=== PATIENT | female | born 1990 | race American Indian/Alaskan Native ===

== ENCOUNTER 2016-11-17 19:56 | Emergency (ER) | payer SELFPAY ==
--- NOTE | 2016-11-17 21:13 | XRay Report ---
FINAL REPORT PROCEDURE: XR HAND 2V RT TECHNIQUE: Two views of the right hand are obtained HISTORY: RIGHT HAND PAIN COMPARISON: No prior studies are available for comparison. FINDINGS: There is a minimally displaced, oblique fracture through the proximal shaft of the 3rd metacarpal. No involvement of the joint space is seen. No dislocation is seen. IMPRESSION: Minimally displaced, oblique fracture through the proximal shaft of the 3rd metacarpal is seen.
[2016-11-17] MEDS ORDERED: VALIUM IM ONE (23:46)
[2016-11-17] MEDS ORDERED: MOTRIN PO ONE (23:46)
--- NOTE | 2016-11-17 23:51 | Emergency Department Report ---
HPI - General Chief Complaint: Extremity Injury, Upper Time Seen by Provider: 11/17/16 23:43 - HPI HPI: Patient is a 26-year-old female presents to ED complaining of right hand pain 3 days. Patient states that about 3 days ago she punched a wall and since then she doesn't pain and swelling. Systems gone down a bit but she still hurts her hand and is unable to lift things or object. Patient also complains of upper lip redness and swelling for the past 4 days. Patient states she has upper lip ring that has gone into her lip and is causing infection. Patient states she will light. Lip ring to be removed. She denies discussed chills/nausea/vomiting/abdominal pain. ED Past Medical Hx - Past Medical History Previous Medical History?: No Hx Hypertension: No Hx Diabetes: No Hx Deep Vein Thrombosis: No Hx Renal Disease: No Hx Sickle Cell Disease: No Hx Seizures: No Hx Asthma: No - Surgical History Past Surgical History?: No - Social History Smoking Status: Current Every Day Smoker Substance Use Type: None - Medications Home Medications: Home Medications Medication Instructions Recorded Confirmed Last Taken Type Pnv with Ca,No.72/Iron/FA [Pnv 1 tab PO DAILY 01/03/16 01/03/16 01/02/16 09:00 History Plus Multivit Tab] Cephalexin [Keflex] 500 mg PO Q12HR #14 cap 11/18/16 Unknown Rx Cyclobenzaprine [Flexeril] 10 mg PO QHS PRN #20 tablet 11/18/16 Unknown Rx Ibuprofen [Motrin] 800 mg PO Q8HR PRN #40 tablet 11/18/16 Unknown Rx ED Review of Systems ROS: Stated complaint: RT HAND INJURY/SWOLLEN LIP Other details as noted in HPI Constitutional: denies: chills, fever Eyes: denies: eye pain, eye discharge, vision change ENT: denies: ear pain, throat pain Respiratory: denies: cough, shortness of breath, wheezing Cardiovascular: denies: chest pain, palpitations Endocrine: no symptoms reported Gastrointestinal: denies: abdominal pain, nausea, vomiting, diarrhea Genitourinary: denies: urgency, dysuria, frequency, discharge Musculoskeletal: denies: back pain, joint swelling, arthralgia Skin: denies: rash, lesions Neurological: denies: headache, weakness, numbness, paresthesias, confusion Psychiatric: denies: anxiety, depression Hematological/Lymphatic: denies: easy bleeding, easy bruising Physical Exam - Physical Exam Vital Signs: Vital Signs 11/17/16 20:11 Temperature 98.7 F Pulse Rate 99 H Respiratory 20 Rate Blood Pressure 102/62 O2 Sat by Pulse 99 Oximetry Physical Exam: GENERAL: Alert and oriented x3, no apparent distress, Normal Gait, atraumatic. HEAD: Head is normocephalic and a-traumatic. MOUTH:Mouth is well hydrated and without lesions. Tonsils nonerythematous or swollen, Uvula midline, Tongue not elevated. Mucous membranes are moist. Posterior pharynx clear, no exudate or lesions. Patent airways. NECK: Supple. Non edematous, No lymphadenopathy or thyromegaly. No C-spine tenderness LUNGS: Symetrical with respiration, No wheezing, no rales or crackles, CTAB. HEART: S1, S2 present, regular rate and rhythm without murmur, no rubs, no gallops. Non tender to palpation ABDOMEN: No organomegaly was noted,Positive bowel sounds, soft, and non- distended. The Nontender to palpation on all Quadrants, NO CVA tenderness. BACK: Full range of motion, no spinal tenderness, nontender to palpation. EXTREMITIES/MUSCULOSKELETAL: No cyanosis, clubbing, rash, lesions or edema. Full ROM bilaterally. UE/LE Pulses 2+ bilaterally. NEUROLOGIC: The patient is cooperative with no focal neurologic deficits. Cranial nerves II through XII are grossly intact. Normal speech. Normal sensation in bilateral upper and lower extremities, No loss of sensation. Mood is congruent with affect, denies suicidal or homicidal ideations. SKIN: Warm and dry, No lesions, No ulceration or induration present. ED Course Vital Signs 11/17/16 20:11 Temperature 98.7 F Pulse Rate 99 H Respiratory 20 Rate Blood Pressure 102/62 O2 Sat by Pulse 99 Oximetry ED Medical Decision Making - Radiology Data Radiology results: report reviewed, image reviewed FINAL REPORT PROCEDURE: XR HAND 2V RT TECHNIQUE: Two views of the right hand are obtained HISTORY: RIGHT HAND PAIN COMPARISON: No prior studies are available for comparison. FINDINGS: There is a minimally displaced, oblique fracture through the proximal shaft of the 3rd metacarpal. No involvement of the joint space is seen. No dislocation is seen. IMPRESSION: Minimally displaced, oblique fracture through the proximal shaft of the 3rd metacarpal is seen. Transcribed By: [employer] Dictated By: TYRELL HUNT JR, MD Electronically Authenticated By: TYRELL HUNT JR, MD Signed Date/Time: 11/17/162106 FINAL REPORT PROCEDURE: CT FACIAL BONES WO CON TECHNIQUE: Computerized tomography of the facial bones and soft tissues with axial and coronal sections performed from the cranial aspect of the frontal sinuses to the caudal portion of the mandible without contrast material. HISTORY: Swollen infected upper lip with lip ring inside. COMPARISON: No prior studies are available for comparison. FINDINGS: Bones: No significant abnormality. Paranasal sinuses: Nasopharyngeal secretions. Ostiomeatal units are patent. Mild left and minimal right maxillary sinusitis. Minimal right ethmoid sinusitis. Soft tissues: Upper lip piercing causes artifact and limits evaluation. Soft tissue prominence and induration in this region. Soft tissue prominence of the upper lip just inferior to the lip piercing measuring 10 x 12 millimeters. Other: None. IMPRESSION: Upper lip piercing causes artifact and limits evaluation. Soft tissue prominence and induration in this region, consider cellulitis. Although could be artifact, soft tissue prominence just inferior to the piercing, cannot exclude subtle early organizing phlegmon/abscess. Consider further evaluation and followup if this is of continued clinical concern. Nasopharyngeal secretions. Mild sinusitis. - Medical Decision Making 26-year-old female presents to ED with possible fracture and foreign body properly ED course: Patient received valium, Motrin 88. Patient positioned appropriately, 8cc lidocaine with/without epinephrine was used as a local anesthetic. #11 blade scalpal used for single incision. A. Copius drainage of pus from lip. this reduced the sweeling and the lip ring was visualized and grasp with a clamp and after several minutes of twirling and manipulation of lip ring, I was able to get th e ring out,. . Procedure tolerated without complications. Wound dressed with sterile strips. Pt tolerated procedure well. Vital OCL splint applied to right hand. Post splint evaluation: Patient improved over the fingers, capillary refill 2+. No neurological deficit. Critical care attestation.: If time is entered above; I have spent that time in minutes in the direct care of this critically ill patient, excluding procedure time. ED Disposition Clinical Impression: Fracture of metacarpal base of right hand, closed, Foreign body in soft tissue Disposition: DC-01 TO HOME OR SELFCARE Is pt being admited?: No Does the pt Need Aspirin: No Condition: Stable Instructions: Hand Fracture (ED), Acute Wound Care (ED), Finger Dislocation (ED ) Prescriptions: Cyclobenzaprine [Flexeril] 10 mg PO QHS PRN #20 tablet PRN Reason: Muscle Spasm Cephalexin [Keflex] 500 mg PO Q12HR #14 cap Ibuprofen [Motrin] 800 mg PO Q8HR PRN #40 tablet PRN Reason: Pain Referrals: PRIMARY CAREMD [Primary Care Provider] - 3-5 Days JAJA WOODWARD MD [Staff Physician] - 3-5 Days [facility] [place][Note 3] [Outside] - 3-5 Days [facility] [Outside] - 3-5 Days Forms: Accompanied Note, Work/School Release Form(ED) Time of Disposition: 02:47
[2016-11-18 00:55] VITALS: BP 103/64
--- NOTE | 2016-11-18 01:11 | Cat Scan Report ---
FINAL REPORT PROCEDURE: CT FACIAL BONES WO CON TECHNIQUE: Computerized tomography of the facial bones and soft tissues with axial and coronal sections performed from the cranial aspect of the frontal sinuses to the caudal portion of the mandible without contrast material. HISTORY: Swollen infected upper lip with lip ring inside. COMPARISON: No prior studies are available for comparison. FINDINGS: Bones: No significant abnormality. Paranasal sinuses: Nasopharyngeal secretions. Ostiomeatal units are patent. Mild left and minimal right maxillary sinusitis. Minimal right ethmoid sinusitis. Soft tissues: Upper lip piercing causes artifact and limits evaluation. Soft tissue prominence and induration in this region. Soft tissue prominence of the upper lip just inferior to the lip piercing measuring 10 x 12 millimeters. Other: None. IMPRESSION: Upper lip piercing causes artifact and limits evaluation. Soft tissue prominence and induration in this region, consider cellulitis. Although could be artifact, soft tissue prominence just inferior to the piercing, cannot exclude subtle early organizing phlegmon/abscess. Consider further evaluation and followup if this is of continued clinical concern. Nasopharyngeal secretions. Mild sinusitis.
== END 2016-11-18 03:23 | disposition home or self-care (01) ==
LOC: ED 19:56
DX: S62.309A Unspecified fracture of unspecified metacarpal bone, initial encounter for closed fracture (principal); S60.551A Superficial foreign body of right hand, initial encounter; X58.XXXA Exposure to other specified factors, initial encounter; Y93.9 Activity, unspecified; Y92.9 Unspecified place or not applicable; Y99.9 Unspecified external cause status
CPT/HCPCS: 10060; 29125; 70486; 73120; 96372; 99284; J3360

== ENCOUNTER 2017-04-16 01:27 | Outpatient (CLI) | payer SELFPAY ==
[2017-04-16 01:36] VITALS: BP 91/50
[2017-04-16 02:31] LABS: Bacteria,Urine 4+ /HPF (Negative); Bilirubin,Urine NEG (Negative); Blood,Urine NEG (Negative); Color,Urine Straw (Yellow); Nitrite,Urine NEG (Negative); Protein,Urine <15 mg/dL mg/dL (Negative); Urobilinogen,Urine < 2.0 mg/dL (<2.0)
[2017-04-16 02:41] LABS: Amphetamine Screen,Urine PRESUMPTIVE NEGATIVE; Benzodiazepines Screen,Urine PRESUMPTIVE NEGATIVE; Cocaine Screen,Urine PRESUMPTIVE NEGATIVE; Methadone Screen,Urine PRESUMPTIVE NEGATIVE; Opiate Screen,Urine PRESUMPTIVE NEGATIVE
[2017-04-16 02:57] LABS: Cannabinoid Screen,Urine PRESUMPTIVE POSITIVE
[2017-04-16] MEDS ORDERED: TYLENOL ONE (02:57)
[2017-04-16] MEDS ORDERED: TYLENOL PO ONE (02:58)
== END 2017-04-16 03:18 | disposition home or self-care (01) ==
LOC: TRG 01:27
PROVIDERS: ATTEND Obstetrics & Gynecology
DX: O47.02 False labor before 37 completed weeks of gestation, second trimester (principal); Z3A.26 26 weeks gestation of pregnancy; Z79.899 Other long term (current) drug therapy
CPT/HCPCS: 80307; 81001

== ENCOUNTER 2017-05-03 10:03 | Inpatient (IN) | payer OTHER ==
[2017-05-03] MEDS ORDERED: MAGNESIUM SULFATE 40GM/1000ML 40 GM/1,000 ML BAG IV SCH (11:00)
[2017-05-03] MEDS ORDERED: MAGNESIUM SULFATE IV ONE (11:02)
[2017-05-03] MEDS ORDERED: LACTATED RINGERS 1,000 ML ONE (11:47)
[2017-05-03] MEDS ORDERED: MAGNESIUM SULFATE 4GM/100ML 4 GM/100 ML BAG IV ONE (12:00)
[2017-05-03] MEDS ORDERED: COLACE PO PRN (12:04)
[2017-05-03] MEDS ORDERED: SUDAFED PO PRN (12:04)
[2017-05-03] MEDS ORDERED: SENOKOT S PO PRN (12:04)
[2017-05-03 12:16] LABS: Amphetamine Screen,Urine PRESUMPTIVE NEGATIVE; Benzodiazepines Screen,Urine PRESUMPTIVE NEGATIVE; Cocaine Screen,Urine PRESUMPTIVE NEGATIVE; Methadone Screen,Urine PRESUMPTIVE NEGATIVE; Opiate Screen,Urine PRESUMPTIVE NEGATIVE
[2017-05-03 12:40] LABS: Cannabinoid Screen,Urine PRESUMPTIVE POSITIVE
[2017-05-03] MEDS: CELESTONE SOLUSPAN IM SCH (13:28)
[2017-05-03 13:40] LABS: Basophils # (Auto) 0.1 K/mm3 (0.0-0.1); Basophils % (Auto) 0.6 % (0.0-1.8); Eosinophils # (Auto) 0.1 K/mm3 (0.0-0.4); Eosinophils % (Auto) 0.5 % (0.0-4.3); Hematocrit 43.4 % (30.3-42.9); Hemoglobin 14.4 gm/dl (10.1-14.3); Lymphocytes # (Auto) 2.5 K/mm3 (1.2-5.4); Lymphocytes % (Auto) 21.7 % (13.4-35.0); Mean Corpuscular HGB Conc 33 % (30-34); Mean Corpuscular Hemoglobin 29 pg (28-32); Mean Corpuscular Volume 88 fl (79-97); Monocytes # (Auto) 0.6 K/mm3 (0.0-0.8); Monocytes % (Auto) 5.1 % (0.0-7.3); Platelet Count 207 K/mm3 (140-440); Red Blood Count 4.92 M/mm3 (3.65-5.03); Red Cell Distribution Width 13.9 % (13.2-15.2)
[2017-05-03] MEDS: MAGNESIUM SULFATE 40 GM in NACL 0.9% 1000 ML 1,000 ML IV SCH (13:41)
[2017-05-03] MEDS: POLYCILLIN/NS 2 GM/100 ML 2 GM/100 ML BAG IV SCH ×2 (14:09→18:33)
--- NOTE | 2017-05-03 15:32 | Ultrasound Report ---
ULTRASOUND OB LIMITED History: Premature rupture of membranes Technique: Transabdominal ultrasound with Doppler interrogation. Gestation: Single Position: Cephalic Amniotic Fluid: Decreased JASON = 1.7 cm Placenta: Left lateral Placental Grade: 1 No evidence for abruption. Heart Rate: 147 BPM
--- NOTE | 2017-05-03 17:29 | History and Physical Report ---
History of Present Illness Date of examination: 05/03/17 Date of admission: 05/03/17 15:15 Chief complaint: My water broke History of present illness: Patient is a 27 year old who presents to L&D with complaint of LOF at 28 weeks with EDC 07/23/2017. She has had no care and states that she has been seen at [facility] in triage multiple times but has never been seen in an office. Her last was reported to be normal and she delivered at term. She states that her insurance has been inactive. Past History Past Medical History: no pertinent history Past Surgical History: no surgical history Family/Genetic History: none Social history: single - Obstetrical History Expected Date of Delivery: 07/23/17 Actual Gestation: 28 Week(s) 3 Day(s) : 2 Para: 1 Number of Living Children: 1 Medications and Allergies Allergies Allergy/AdvReac Type Severity Reaction Status Date / Time No Known Allergies Allergy Verified 01/03/16 12:48 Home Medications Medication Instructions Recorded Confirmed Last Taken Type No Known Home Medications [No 05/03/17 05/03/17 Unknown History Reported Home Medications] Active Meds: Active Medications Acetaminophen (Tylenol) 650 mg PO Q4H PRN PRN Reason: Pain MILD(1-3)/Fever >100.5/TURK Betamethasone Acet/Betameth SodPhos (Celestone Soluspan) 12 mg IM Q24HR SAMUEL Last Admin: 05/03/17 13:28 Dose: 12 mg Docusate Sodium (Colace) 100 mg PO Q12H PRN PRN Reason: Constipation Magnesium Sulfate 40 gm/ (Sodium Chloride) 1,080 mls @ 54 mls/hr IV DIRECT SAMUEL PRN Reason: 2 GM/HR Last Admin: 05/03/17 13:41 Dose: 2 gm/hr, 54 mls/hr Ampicillin Sodium (Polycillin/Ns 2 Gm/100 Ml) 2 gm in 100 mls @ 100 mls/hr IV Q6HR SAMUEL PRN Reason: Protocol Stop: 05/05/17 06:59 Last Admin: 05/03/17 14:09 Dose: 100 mls/hr Lactated Ringer's (Lactated Ringers) 1,000 mls @ 125 mls/hr IV DIRECT SAMUEL Multivitamins/Iron/Calcium ( Vitamin) 1 each PO QDAY SAMUEL Ondansetron HCl (Zofran) 4 mg IV Q6H PRN PRN Reason: Nausea And Vomiting Pseudoephedrine HCl (Sudafed) 30 mg PO Q4H PRN PRN Reason: Nasal Congestion Senna/Docusate Sodium (Senokot S) 2 tab PO Q12H PRN PRN Reason: Laxative Effect Zolpidem Tartrate (Ambien) 10 mg PO ONCE PRN PRN Reason: Sleep Review of Systems All systems: negative Ears, nose, mouth and throat: headache Breasts: deferred Genitourinary: leakage of fluid, contractions - Vital Signs Vital signs: Vital Signs Pulse Ox 100 04/16/17 02:50 Temp Pulse Resp BP Pulse Ox 97.1 F L 76 18 87/50 98 05/03/17 11:27 05/03/17 17:19 05/03/17 11:27 05/03/17 16:55 05/03/17 17:19 - Physical Exam Breasts: Cardiovascular: Regular rate, Normal S1, Normal S2 Lungs: Positive: Clear to auscultation, Normal air movement Abdomen: Positive: normal appearance, soft, normal bowel sounds. Negative: distention, tenderness Genitourinary (Female): Positive: normal external genitalia, normal perenium Vulva: both: normal Vagina: Positive: normal moisture. Negative: discharge Cervix: Negative: lesion, discharge Uterus: Positive: normal size, normal contour Adnexa: both: normal Anus/Rectum: Positive: normal perianal skin, heme negative. Negative: rectal mass, hemorrhoids Extremities: Deep Tendon Reflex Grade: Normal +2 - Obstetrical Cervical Dilatation: 3 Cervical Effacement Percentage: 50 station: -3 Uterine Contraction Pattern: Irregular Uterine Tone Measurement Phase: Resting Uterine Contraction Intensity: Moderate Results Result Diagrams: 05/03/17 13:10 Abnormal lab results 05/03/17 Range/Units 13:10 WBC 11.3 H (4.5-11.0) K/mm3 Hgb 14.4 H (10.1-14.3) gm/dl Hct 43.4 H (30.3-42.9) % Seg Neutrophils % 72.1 H (40.0-70.0) % Seg Neutrophils # 8.2 H (1.8-7.7) K/mm3 All other labs normal. Assessment and Plan IUP at 28.2 weeks with pprom and no care. Admit to APU. Begin magnesium for neuroprophylaxis. Administer steroids and antibiotics. NPO for now. Will consult NICU. Draw panel for no care. Order ultrasound to check position and JASON. Expectant management.
[2017-05-03 18:23] LABS: Hepatitis C Virus Antibody Non-Reactive (NonReactive); Rubella IgG Antibody Immune (Immune)
[2017-05-03] MEDS: TYLENOL PO PRN (18:26)
[2017-05-03] MEDS: ZOFRAN IV PRN (18:28)
[2017-05-03] MEDS: AMBIEN PO PRN (22:19)
[2017-05-04] MEDS: POLYCILLIN/NS 2 GM/100 ML 2 GM/100 ML BAG IV SCH ×4 (00:09→17:42)
[2017-05-04] MEDS ORDERED: BICITRA PO ONE (01:54)
[2017-05-04] MEDS: LACTATED RINGERS 1,000 ML IV SCH ×2 (02:51→17:19)
[2017-05-04] MEDS ORDERED: ALUM-MAG HYDROX-SIMETH 200-200-20MG/5ML PO PRN (03:40)
[2017-05-04] MEDS: TYLENOL PO PRN (09:14)
[2017-05-04] MEDS: MAGNESIUM SULFATE 40 GM in NACL 0.9% 1000 ML 1,000 ML IV SCH (10:34)
[2017-05-04] MEDS: PRENATAL VITAMIN PO SCH (10:47)
--- NOTE | 2017-05-04 12:38 | Progress Note ---
Assessment and Plan IUP at 28.4 weeks with pprom. Patient currently stable. Will receive 2nd dose of steroids at 1:30 pm. After which, we will discontinue magesium. Will continue expectant management. Subjective - Subjective Date of service: 05/04/17 Principal diagnosis: PPROM Interval history: Patient is a 27 year old who presents to L&D with complaint of LOF at 28 weeks with EDC 07/23/2017. She has had no care and states that she has been seen at [facility] in triage multiple times but has never been seen in an office. Her last was reported to be normal and she delivered at term. She states that her insurance has been inactive. Patient reports: other (no new complaints on today) Objective - Vital Signs Vital Signs: Vital Signs - 12hr 05/04/17 05/04/17 05/04/17 00:35 02:54 02:56 Temperature Pulse Rate 80 84 82 Respiratory Rate Blood Pressure 88/49 88/52 Blood Pressure [Left] O2 Sat by Pulse 97 Oximetry 05/04/17 05/04/17 05/04/17 03:01 03:06 03:11 Temperature Pulse Rate 89 85 66 Respiratory Rate Blood Pressure Blood Pressure [Left] O2 Sat by Pulse 99 99 100 Oximetry 05/04/17 05/04/17 05/04/17 03:16 03:21 03:26 Temperature Pulse Rate 75 75 78 Respiratory Rate Blood Pressure Blood Pressure [Left] O2 Sat by Pulse 98 98 97 Oximetry 05/04/17 05/04/17 05/04/17 03:29 03:43 03:48 Temperature 98.0 F Pulse Rate 78 86 Respiratory 18 Rate Blood Pressure Blood Pressure [Left] O2 Sat by Pulse 98 97 Oximetry 05/04/17 05/04/17 05/04/17 03:53 03:58 04:03 Temperature Pulse Rate 85 79 76 Respiratory Rate Blood Pressure Blood Pressure [Left] O2 Sat by Pulse 98 98 97 Oximetry 05/04/17 05/04/17 05/04/17 04:08 04:11 04:13 Temperature Pulse Rate 80 77 80 Respiratory Rate Blood Pressure 90/53 Blood Pressure [Left] O2 Sat by Pulse 98 97 Oximetry 05/04/17 05/04/17 05/04/17 04:18 04:24 04:29 Temperature Pulse Rate 74 Respiratory Rate Blood Pressure Blood Pressure [Left] O2 Sat by Pulse 100 30 L 36 L Oximetry 05/04/17 05/04/17 05/04/17 04:31 04:34 04:37 Temperature Pulse Rate 77 Respiratory Rate Blood Pressure Blood Pressure [Left] O2 Sat by Pulse 41 L 66 L 100 Oximetry 05/04/17 05/04/17 05/04/17 04:39 04:44 04:50 Temperature Pulse Rate Respiratory Rate Blood Pressure Blood Pressure [Left] O2 Sat by Pulse 45 L 9 L 18 L Oximetry 05/04/17 05/04/17 05/04/17 04:56 05:02 05:07 Temperature Pulse Rate 77 76 Respiratory Rate Blood Pressure Blood Pressure [Left] O2 Sat by Pulse 92 99 98 Oximetry 05/04/17 05/04/17 05/04/17 05:11 05:12 05:17 Temperature Pulse Rate 75 78 78 Respiratory Rate Blood Pressure 86/47 Blood Pressure [Left] O2 Sat by Pulse 98 98 Oximetry 05/04/17 05/04/17 05/04/17 05:22 05:27 05:32 Temperature Pulse Rate 79 80 81 Respiratory Rate Blood Pressure Blood Pressure [Left] O2 Sat by Pulse 98 98 98 Oximetry 05/04/17 05/04/17 05/04/17 05:36 05:37 05:42 Temperature 97.6 F Pulse Rate 76 71 Respiratory 18 Rate Blood Pressure Blood Pressure [Left] O2 Sat by Pulse 97 97 Oximetry 05/04/17 05/04/17 05/04/17 05:47 05:52 05:57 Temperature Pulse Rate 71 74 75 Respiratory Rate Blood Pressure Blood Pressure [Left] O2 Sat by Pulse 96 97 97 Oximetry 05/04/17 05/04/17 05/04/17 06:02 06:07 06:11 Temperature Pulse Rate 76 72 82 Respiratory Rate Blood Pressure 98/52 Blood Pressure [Left] O2 Sat by Pulse 98 97 Oximetry 05/04/17 05/04/17 05/04/17 06:12 06:17 06:22 Temperature Pulse Rate 75 77 74 Respiratory Rate Blood Pressure Blood Pressure [Left] O2 Sat by Pulse 98 97 97 Oximetry 05/04/17 05/04/17 05/04/17 06:27 06:32 07:11 Temperature Pulse Rate 78 81 74 Respiratory Rate Blood Pressure 74/37 Blood Pressure [Left] O2 Sat by Pulse 97 98 Oximetry 05/04/17 05/04/17 05/04/17 07:49 07:51 07:52 Temperature 97.6 F Pulse Rate 79 67 67 Respiratory 18 Rate Blood Pressure 86/51 Blood Pressure 86/51 [Left] O2 Sat by Pulse 100 100 Oximetry 05/04/17 05/04/17 05/04/17 07:57 08:01 08:02 Temperature Pulse Rate 72 74 71 Respiratory Rate Blood Pressure Blood Pressure [Left] O2 Sat by Pulse 100 85 100 Oximetry 05/04/17 05/04/17 05/04/17 08:07 08:11 08:12 Temperature Pulse Rate 74 80 82 Respiratory Rate Blood Pressure 80/42 Blood Pressure [Left] O2 Sat by Pulse 97 97 Oximetry 05/04/17 05/04/17 05/04/17 08:17 08:22 08:27 Temperature Pulse Rate 72 77 76 Respiratory Rate Blood Pressure Blood Pressure [Left] O2 Sat by Pulse 98 98 98 Oximetry 05/04/17 05/04/17 05/04/17 08:32 08:37 08:42 Temperature Pulse Rate 77 76 75 Respiratory Rate Blood Pressure Blood Pressure [Left] O2 Sat by Pulse 97 96 97 Oximetry 05/04/17 05/04/17 05/04/17 10:11 11:11 12:24 Temperature 97.6 F Pulse Rate 76 77 70 Respiratory 18 Rate Blood Pressure 103/58 99/55 Blood Pressure 94/51 [Left] O2 Sat by Pulse 99 Oximetry 05/04/17 05/04/17 12:27 12:29 Temperature Pulse Rate 70 74 Respiratory Rate Blood Pressure 94/51 Blood Pressure [Left] O2 Sat by Pulse 99 Oximetry - Exam Breasts: deferred Cardiovascular: Regular rate, Normal S1, Normal S2 Lungs: Clear to auscultation, Normal air movement Abdomen: Present: normal appearance, soft, normal bowel sounds, other (gravid, nontender) Vulva: both: normal (no vaginal discharge) Uterus: Present: normal, firm Uterine Contraction Pattern: Absent - Labs Labs: Abnormal Labs 05/03/17 05/04/17 05/04/17 13:10 00:22 06:06 WBC 11.3 H Hgb 14.4 H Hct 43.4 H Seg Neutrophils % 72.1 H Seg Neutrophils # 8.2 H Magnesium 6.60 H 7.00 H Laboratory Results - last 24 hr 05/03/17 05/03/17 05/03/17 11:30 13:00 13:10 WBC 11.3 H RBC 4.92 Hgb 14.4 H Hct 43.4 H MCV 88 MCH 29 MCHC 33 RDW 13.9 Plt Count 207 Lymph % (Auto) 21.7 [place] % (Auto) 5.1 Eos % (Auto) 0.5 Baso % (Auto) 0.6 Lymph # 2.5 [place] # 0.6 Eos # 0.1 Baso # 0.1 Seg Neutrophils % 72.1 H Seg Neutrophils # 8.2 H Sickle Cell Screen Magnesium U Marijuana (THC) Screen Presumptive positive Drugs of Abuse Note Disclamer RPR Hep Bs Antigen Hepatitis C Antibody Rubella IgG Antibody Blood Type O POSITIVE Antibody Screen Negative 05/03/17 05/03/17 05/03/17 17:20 17:20 17:20 WBC RBC Hgb Hct MCV MCH MCHC RDW Plt Count Lymph % (Auto) [place] % (Auto) Eos % (Auto) Baso % (Auto) Lymph # [place] # Eos # Baso # Seg Neutrophils % Seg Neutrophils # Sickle Cell Screen Positive Magnesium U Marijuana (THC) Screen Drugs of Abuse Note RPR Hep Bs Antigen Non-reactive Hepatitis C Antibody Non-reactive Rubella IgG Antibody Immune Blood Type Antibody Screen 05/03/17 05/04/17 05/04/17 17:20 00:22 06:06 WBC RBC Hgb Hct MCV MCH MCHC RDW Plt Count Lymph % (Auto) [place] % (Auto) Eos % (Auto) Baso % (Auto) Lymph # [place] # Eos # Baso # Seg Neutrophils % Seg Neutrophils # Sickle Cell Screen Magnesium 6.60 H 7.00 H U Marijuana (THC) Screen Drugs of Abuse Note RPR Nonreactive Hep Bs Antigen Hepatitis C Antibody Rubella IgG Antibody Blood Type Antibody Screen
[2017-05-04] MEDS: CELESTONE SOLUSPAN IM SCH (13:32)
--- NOTE | 2017-05-04 15:10 | Consultation ---
History of Present Illness Consult date: 05/04/17 Requesting physician: ABIEL BOWDEN Reason for consult: prematurity History of present illness: PPROM at 28 weeks without onset of labor Documentation - Maternal Info Maternal Blood Type: O (+) positive HbsAg: Negative RPR/VDRL: Non-reactive Group Beta Strep: Not Complete Rubella: Immune Amniotic Membrane Rupture Date: 05/03/17 Amniotic Membrane Rupture Time: 08:00 - information: Height 5 ft 5 in Medications and Allergies Allergies Allergy/AdvReac Type Severity Reaction Status Date / Time No Known Allergies Allergy Verified 01/03/16 12:48 Home Medications Medication Instructions Recorded Confirmed Last Taken Type No Known Home Medications [No 05/03/17 05/03/17 Unknown History Reported Home Medications] Active Meds: Active Medications Acetaminophen (Tylenol) 650 mg PO Q4H PRN PRN Reason: Pain MILD(1-3)/Fever >100.5/TURK Last Admin: 05/04/17 09:14 Dose: 650 mg Al Hydrox/Mg Hydrox/Simethicone (Alum-Mag Hydrox-Simeth [id number]/5ml) 30 ml PO Q4H PRN PRN Reason: Indigestion Betamethasone Acet/Betameth SodPhos (Celestone Soluspan) 12 mg IM Q24HR SAMUEL Last Admin: 05/04/17 13:32 Dose: 12 mg Docusate Sodium (Colace) 100 mg PO Q12H PRN PRN Reason: Constipation Magnesium Sulfate 40 gm/ (Sodium Chloride) 1,080 mls @ 54 mls/hr IV DIRECT SAMUEL PRN Reason: 2 GM/HR Last Admin: 05/04/17 10:34 Dose: 2 gm/hr, 54 mls/hr Ampicillin Sodium (Polycillin/Ns 2 Gm/100 Ml) 2 gm in 100 mls @ 100 mls/hr IV Q6HR SAMUEL PRN Reason: Protocol Stop: 05/05/17 06:59 Last Admin: 05/04/17 12:27 Dose: 100 mls/hr Lactated Ringer's (Lactated Ringers) 1,000 mls @ 125 mls/hr IV DIRECT SAMUEL Last Admin: 05/04/17 02:51 Dose: 125 mls/hr Multivitamins/Iron/Calcium ( Vitamin) 1 each PO QDAY SAMUEL Last Admin: 05/04/17 10:47 Dose: 1 each Ondansetron HCl (Zofran) 4 mg IV Q6H PRN PRN Reason: Nausea And Vomiting Last Admin: 05/03/17 18:28 Dose: 4 mg Pseudoephedrine HCl (Sudafed) 30 mg PO Q4H PRN PRN Reason: Nasal Congestion Senna/Docusate Sodium (Senokot S) 2 tab PO Q12H PRN PRN Reason: Laxative Effect Zolpidem Tartrate (Ambien) 10 mg PO ONCE PRN PRN Reason: Sleep Last Admin: 05/03/17 22:19 Dose: 10 mg Exam Vital Signs Pulse Ox 100 04/16/17 02:50 Temp Pulse Resp BP Pulse Ox 97.6 F 78 18 94/52 99 05/04/17 12:24 05/04/17 13:11 05/04/17 12:24 05/04/17 13:11 05/04/17 12:29 Results - Laboratory Findings 05/03/17 13:10 Abnormal lab results 05/04/17 05/04/17 05/04/17 Range/Units 00:22 06:06 11:50 Magnesium 6.60 H 7.00 H 7.00 H (1.7-2.3) mg/dL Assessment and Plan Survival at 28 weeks gestation without significant co-morbity is approximately 90%. I explained to mother the need for NICU admission after delivery, the possible need for intubation and mechanical ventilation, non-invasive ventilation, umbilical lines, NG feeds and the risk of IVH, infections and other comorbities whilst in the NICU. Mother expressed understanding of the information provided and had no questions. She wants to provide breast milk for her baby whilst in the NICU and I encouraged her to start pumping soon after delivery. Plan: Agree with steroids, MgSO4 and antibiotics NICU will attend delivery Please call NICU with questions.
[2017-05-04] MEDS: AMBIEN PO PRN (20:59)
[2017-05-05] MEDS: POLYCILLIN/NS 2 GM/100 ML 2 GM/100 ML BAG IV SCH ×2 (00:13→05:45)
[2017-05-05] MEDS: LACTATED RINGERS 1,000 ML IV SCH ×3 (04:05→20:40)
--- NOTE | 2017-05-05 11:02 | Ultrasound Report ---
At LIMITED OB ULTRASOUND: well-being/placental evaluation. Gestation: Masters Position: Cephalic JASON = 3.9 cm Placenta: Anterior Placental Grade: 2 Heart Rate: 140 BPM Estimated age is 20 weeks 5 days. Impression: 1. Oligohydramnios. 2. No abruption identified.
[2017-05-05] MEDS: PRENATAL VITAMIN PO SCH ×2 (12:43→14:42)
[2017-05-05] MEDS ORDERED: TYLENOL PO PRN (14:21)
[2017-05-05] MEDS: AMBIEN PO PRN (20:40)
[2017-05-06] MEDS: LACTATED RINGERS 1,000 ML IV SCH (07:10)
--- NOTE | 2017-05-06 09:57 | Progress Note ---
Assessment and Plan HD 3 with pprom at 28.5 weeks. Patient had some emotional upset yesterday over the care of her daughter but is otherwise without complaint. She has received both doses of steroids and magesium for neuroprotection. She has no signs of infection or chorio. Continue expectant management. Subjective - Subjective Date of service: 05/06/17 Principal diagnosis: PPROM Interval history: Patient is a 27 year old who presents to L&D with complaint of LOF at 28 weeks with EDC 07/23/2017. She has had no care and states that she has been seen at [facility] in triage multiple times but has never been seen in an office. Her last was reported to be normal and she delivered at term. She states that her insurance has been inactive. Patient reports: other (no new complaints on today) Objective - Vital Signs Vital Signs: Vital Signs - 12hr 05/05/17 05/06/17 05/06/17 22:29 01:50 03:24 Temperature 98.2 F Pulse Rate 70 69 Respiratory Rate Blood Pressure 107/57 82/53 Blood Pressure [Left] O2 Sat by Pulse Oximetry 05/06/17 05/06/17 05/06/17 03:25 03:32 05:30 Temperature 97.8 F 98.1 F Pulse Rate 77 Respiratory Rate Blood Pressure 91/57 Blood Pressure [Left] O2 Sat by Pulse Oximetry 05/06/17 05/06/17 07:34 07:40 Temperature 98.1 F Pulse Rate 78 75 Respiratory 18 Rate Blood Pressure 85/47 Blood Pressure 85/47 [Left] O2 Sat by Pulse 99 91 Oximetry - Exam Breasts: deferred Cardiovascular: Regular rate, Normal S1, Normal S2 Lungs: Clear to auscultation, Normal air movement Abdomen: Present: normal appearance, soft (non tender), normal bowel sounds Uterus: Present: fundal height below umbilicus FHR: auscultation normal Cervical Dilatation: 3 Cervical Effacement Percentage: 50 Uterine Contraction Pattern: Absent Uterine Contraction Intensity: Moderate - Labs Labs: Abnormal Labs 05/03/17 05/04/17 05/04/17 13:10 00:22 06:06 WBC 11.3 H Hgb 14.4 H Hct 43.4 H Seg Neutrophils % 72.1 H Seg Neutrophils # 8.2 H Magnesium 6.60 H 7.00 H 05/04/17 11:50 WBC Hgb Hct Seg Neutrophils % Seg Neutrophils # Magnesium 7.00 H
[2017-05-06] MEDS: PRENATAL VITAMIN PO SCH (10:31)
[2017-05-06] MEDS: ZOFRAN IV PRN (18:17)
[2017-05-06] MEDS: AMBIEN PO PRN (22:21)
[2017-05-07] MEDS ORDERED: PITOCin/NS 20 UNIT/1000ML DRIP 20,000 MILLIUNITS/1,000 ML BAG IV ONE (00:39)
[2017-05-07] MEDS ORDERED: SUBLIMAZE ONE (00:42)
[2017-05-07] MEDS ORDERED: SUBLIMAZE IV ONE (00:44)
--- NOTE | 2017-05-07 01:10 | Event Note ---
Date: 05/07/17 Late entry. On-call MD notified that pt was feeling pelvic pressure, and cervix was checked and noted to be 4-5/90/0. Provider en-route for imminent delivery.
--- NOTE | 2017-05-07 01:14 | Procedure Note ---
OB Delivery Note - Delivery Date of Delivery: 05/07/17 Surgeon: BLACK CHRISTIAN Estimated blood loss: 300cc - Vaginal Delivery presentation: vertex Delivery position: OA Intrapartum events: PROM->1hr before delivery, precipitous labor- <3hr, mult.variable deceleratio Delivery induction: none Delivery monitor: external FHT, external uterine Route of delivery: Delivery placenta: spontaneous Delivery cord: 3 umbilical vessels Episiotomy: none Delivery laceration: none Anesthesia: intravenous Delivery comments: Pt rapidly progressed from 3 cm to 4-5 cm to 8 cm to complete dilation and pushed to deliver a viable male over intact perineum under IV anesthesia via . Head, shoulders and body delivered with one push. Cord clamped and cut and handed to NICU staff in attendance with long cord. Cord blood collected. Placenta delivered spontaneously (3VC, intact). Vagina and perineum explored. No lacerations noted. EBL 300 mL. - Infant A at 1 minute: 8 at 5 minutes: 9 Gender: Male (2lb 5oz (1035g) @ 0047 am)
[2017-05-07] MEDS ORDERED: BRETHINE IVP PRN (01:17)
[2017-05-07] MEDS ORDERED: XYLOCAINE 2% INFILTRATI ONE (01:17)
[2017-05-07] MEDS ORDERED: NARCAN 0.4 MG/1 ML IV PRN (01:17)
[2017-05-07] MEDS ORDERED: MINERAL OIL PO PRN (01:17)
[2017-05-07] MEDS ORDERED: BRETHINE SUB-Q PRN (01:17)
[2017-05-07] MEDS ORDERED: ePHEDrine SULFATE IV PRN (01:17)
[2017-05-07] MEDS ORDERED: PITOCin/NS 20 UNIT/1000ML DRIP 20 UNITS/1,000 ML BAG IV SCH ×2 (02:00→03:12)
[2017-05-07] MEDS ORDERED: SODIUM CHLORIDE FLUSH SYRINGE 10 ML IV PRN (03:12)
[2017-05-07] MEDS ORDERED: PHENERGAN PO PRN (03:12)
[2017-05-07] MEDS ORDERED: BENADRYL PO PRN (03:12)
[2017-05-07] MEDS ORDERED: MILK OF MAGNESIA PO PRN (03:12)
[2017-05-07] MEDS ORDERED: LANSINOH TP PRN ×2 (03:12)
[2017-05-07] MEDS ORDERED: TYLENOL PO PRN (03:12)
[2017-05-07] MEDS ORDERED: NORCO 5/325 PO PRN (03:12)
[2017-05-07] MEDS ORDERED: ZOFRAN IV PRN (03:12)
[2017-05-07] MEDS ORDERED: DERMOPLAST TP PRN (03:12)
[2017-05-07] MEDS ORDERED: TUCKS PAD TP PRN (03:12)
[2017-05-07] MEDS ORDERED: PHENERGAN PR PRN (03:12)
[2017-05-07] MEDS ORDERED: DULCOLAX PR PRN (03:12)
[2017-05-07] MEDS: FEOSOL PO SCH (12:09)
[2017-05-07] MEDS: MOTRIN PO SCH ×2 (12:09→18:33)
[2017-05-07 13:37] LABS: Hematocrit 34.4 % (30.3-42.9); Hemoglobin 11.4 gm/dl (10.1-14.3)
--- NOTE | 2017-05-07 16:33 | Progress Note ---
Assessment and Plan O: VSS AF PP H/H: 11.4/34.4 A: Stable PP Day 1 S/P 28 week PPROM, Delivery Prolonged History and current depression. No medications P: Psychologist consult Jillian Subjective - Subjective Date of service: 05/07/17 Principal diagnosis: PPROM Patient reports: appetite normal, voiding normally, pain well controlled (c/o minimal back pain), ambulating normally, other (tearful. 7 year history of depression. No meds. Denies suicide or homicide idealogy.) Objective - Vital Signs Latest vital signs: Vital Signs Temp Pulse Resp BP BP Pulse Ox 05/07/17 08:11 98.7 F 63 18 92/58 63 L 05/07/17 02:30 97.8 F 77 18 99/50 100 05/07/17 01:56 72 104/59 05/07/17 01:41 62 102/64 05/07/17 01:26 85 100/59 05/07/17 01:11 87 102/57 05/06/17 23:00 98.1 F 05/06/17 22:00 70 16 107/57 05/06/17 21:13 98.5 F 73 18 96/52 05/06/17 19:26 73 96/52 05/06/17 19:15 78 102/53 Intake and Output 05/07/17 05/07/17 05/07/17 06:59 14:59 22:59 Intake Total 560 Balance 560 Intake: Oral 560 Other: Total, Intake Amount 240 # Voids Void 1 Estimated Blood Loss 300 - Exam Breasts: Present: deferred Lungs: Present: Normal air movement Abdomen: Present: normal appearance, soft. Absent: distention, tenderness Uterus: Present: normal, firm, bogginess, tenderness, fundal height below umbilicus Extremities: Present: normal
[2017-05-08] MEDS: FEOSOL PO SCH ×2 (00:03→10:00)
[2017-05-08] MEDS: MOTRIN PO SCH ×4 (00:05→17:27)
[2017-05-08] MEDS ORDERED: M-M-R II VACCINE SUB-Q ONE (01:32)
[2017-05-08] MEDS ORDERED: BOOSTRIX IM ONE (06:00)
[2017-05-08] MEDS ORDERED: ZOLOFT PO SCH (10:00)
--- NOTE | 2017-05-08 14:22 | Progress Note ---
Assessment and Plan O: VSS AF Consult for psychologist yesterday, spoke with [facility] as[facility] consultant staff and verbalized consult would be passed to oncoming shift that starts at 3pm. At time of viset/ note no consultation done A: Day 1 PTD @ 28 weeks PPROM No care Extensive 7 year hx of depression, no medications (started yesterday on Zoloft) P: Psychologist consult Subjective - Subjective Date of service: 05/08/17 Principal diagnosis: PPROM Patient reports: appetite normal, voiding normally, pain well controlled, flatus , ambulating normally, other (c/o depression, denies suicide or homicide thoughts) : doing well, in NICU (at [place]) Objective - Vital Signs Latest vital signs: Vital Signs Temp Pulse Resp BP 05/08/17 12:24 18 05/08/17 08:20 98.5 F 64 18 94/59 05/08/17 06:00 16 05/08/17 05:05 98.0 F 58 L 18 87/54 05/08/17 01:05 18 05/08/17 00:05 18 05/08/17 00:00 98.4 F 64 18 84/38 05/07/17 19:33 18 05/07/17 16:00 98.2 F 77 18 104/63 Intake and Output 05/07/17 05/08/17 05/08/17 22:59 06:59 14:59 Intake Total 240 240 600 Balance 240 240 600 Intake: Oral 240 600 Intake, Free Water 240 Other: Total, Intake Amount 240 360 # Voids Void 1 1 - Exam Breasts: Present: deferred Abdomen: Present: normal appearance, soft. Absent: distention, tenderness Uterus: Present: normal, firm, fundal height below umbilicus. Absent: bogginess , tenderness Extremities: Present: normal
--- NOTE | 2017-05-08 18:22 | Discharge Summary ---
Providers - Providers Date of Admission: 05/03/17 15:15 Date of discharge: 05/08/17 Attending physician: ABIEL BOWDEN 05/03/17 Consult to Case Management [CONS] Routine Services Needed at Discharge: A Class Lineman Notified:: yes Phone number called:: [phone] Was contact made?: No Time called:: 07:33 Comment:: message left for James 05/03/17 12:04 Consult to Physician [CONS] Stat Consulting Provider: KHALIDA ZAMORA Reason For Exam: pprom Place consult to:: NICU Notified:: charge nurse 05/07/17 03:12 Consult to Business Office Technology Instructor [CONS] Routine Reason For Exam: assistance with , SNS 05/07/17 14:46 psychiatry consult [Consult to Mental Health] [CONS] Routine Reason For Exam: hx of depression- not taking meds Place consult to:: Razia Notified:: Razia Phone number called:: [phone] Was contact made?: Yes If yes, spoke with:: Razia Time called:: 02:45 Primary care physician: ABIEL BOWDEN Hospitalization Reason for admission: IUP - , labor, rupture of membranes Delivery: Episiotomy: none Laceration: none Other procedures: none complications: none Discharge diagnosis: delivery [place] baby: male Condition at discharge: Good Disposition: DC-01 TO HOME OR SELFCARE Plan - Provider Discharge Summary Activity: routine, no sex for 6 weeks, no heavy lifting 4 weeks, no strenuous exercise Diet: routine Instructions: routine Additional instructions: [] Smoking cessation referral if applicable(refer to patient education folder for contact #) [] Refer to [facility]'s [facility] Booklet Call your doctor immediately for: * Fever > 100.5 * Heavy vaginal bleeding ( >1 pad per hour) * Severe persistent headache * Shortness of breath * Reddened, hot, painful area to leg or breast * Drainage or odor from incision. * Keep incision clean and dry at all times and follow doctor's instructions regarding bathing/showering - Follow up plan Follow up: ABIEL BOWDEN MD [Primary Care Provider] - Forms: [facility] Discharge Summary, Discharge Signature Page
[2017-05-08 19:16] VITALS: BP 94/61
== END 2017-05-08 23:00 | disposition home or self-care (01) | DRG 775 ==
LOC: TRG 10:03 → EDBD 10:03 → TRG 10:04 → LD 11:14 → TRG 15:12 → LD 15:15 → OB 05-07 02:35
PROVIDERS: ADMIT Obstetrics & Gynecology; ATTEND Obstetrics & Gynecology
PROC: 10E0XZZ Delivery of Products of Conception, External Approach (ICD-10-PCS; principal; 2017-05-07)
PROC: 3E0234Z Introduction of Serum, Toxoid and Vaccine into Muscle, Percutaneous Approach (ICD-10-PCS; 2017-05-08)
DX: O42.013 Preterm premature rupture of membranes, onset of labor within 24 hours of rupture, third trimester (principal); Z37.0 Single live birth; Z3A.28 28 weeks gestation of pregnancy; O76 Abnormality in fetal heart rate and rhythm complicating labor and delivery; O99.344 Other mental disorders complicating childbirth; F32.9 Major depressive disorder, single episode, unspecified; Z23 Encounter for immunization
CPT/HCPCS: 36415; 76815; 80307; 83735; 85014; 85018; 85025; 85660; 86592; 86706; 86762; 86803; 86850; 86900; 86901; 87535; 87806; 88307; J0290; J0702; J2405; J2590; J3010; J3475; J7030; J7120

== ENCOUNTER 2018-07-23 15:20 | Inpatient (IN) | payer MEDICAID, OTHER ==
[2018-07-23] MEDS ORDERED: LACTATED RINGERS 1,000 ML ONE (16:34)
[2018-07-23] MEDS ORDERED: LACTATED RINGERS 1,000 ML IV SCH (17:00)
[2018-07-23] MEDS ORDERED: COLACE PO PRN (17:16)
[2018-07-23] MEDS ORDERED: ZOFRAN IV PRN (17:16)
[2018-07-23] MEDS ORDERED: ALUM-MAG HYDROX-SIMETH 200-200-20MG/5ML PO PRN (17:16)
[2018-07-23] MEDS ORDERED: TYLENOL PO PRN (17:16)
[2018-07-23 17:57] LABS: Basophils % (Auto) 0.2 % (0.0-1.8); Eosinophils # (Auto) 0.1 K/mm3 (0.0-0.4); Eosinophils % (Auto) 0.8 % (0.0-4.3); Hematocrit 35.1 % (30.3-42.9); Hemoglobin 12.1 gm/dl (10.1-14.3); Lymphocytes # (Auto) 2.4 K/mm3 (1.2-5.4); Lymphocytes % (Auto) 23.1 % (13.4-35.0); Mean Corpuscular HGB Conc 35 % (30-34); Mean Corpuscular Volume 87 fl (79-97); Monocytes # (Auto) 0.6 K/mm3 (0.0-0.8); Monocytes % (Auto) 5.5 % (0.0-7.3); Platelet Count 193 K/mm3 (140-440); Red Blood Count 4.02 M/mm3 (3.65-5.03); Red Cell Distribution Width 13.1 % (13.2-15.2)
[2018-07-23] MEDS ORDERED: CELESTONE SOLUSPAN IM SCH (18:00)
[2018-07-23] MEDS ORDERED: LACTATED RINGERS 500 ML IV ONE (18:00)
[2018-07-23] MEDS ORDERED: MAGNESIUM SULFATE 4GM/100ML 4 GM/100 ML BAG IV ONE (18:00)
[2018-07-23] MEDS ORDERED: PRENATAL VITAMIN PO SCH (18:00)
[2018-07-23] MEDS ORDERED: MAGNESIUM SULFATE 40GM/1000ML 40 GM/1,000 ML BAG IV SCH (18:00)
--- NOTE | 2018-07-23 18:22 | History and Physical Report ---
History of Present Illness Date of examination: 07/23/18 Date of admission: 07/23/18 17:16 Chief complaint: no , pt arrived with c/o loss of vision, TURK and feeling dizzy. upon assessment pt ctx q1-6 minutes. SVE /0 by sales management intern. 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 Family/Genetic History: sickle cell/trait Social history: single - Obstetrical History Expected Date of Delivery: 09/04/18 Actual Gestation: 33 Week(s) 6 Day(s) : 3 Para: 2 Hx # Term Pregnancies: 1 Number of Pregnancies: 1 Spontaneous Abortions: 0 Induced : 0 Number of Living Children: 2 Medications and Allergies Allergies Allergy/AdvReac Type Severity Reaction Status Date / Time No Known Allergies Allergy Verified 01/03/16 12:48 Home Medications Medication Instructions Recorded Confirmed Last Taken Type Acetaminophen [Tylenol] 650 mg PO QID PRN #30 capsule 05/06/18 Unknown Rx cephALEXin [Keflex] 500 mg PO Q8HR 10 Days #30 cap 05/06/18 Unknown Rx Active Meds: Active Medications Acetaminophen (Tylenol) 650 mg PO Q4H PRN PRN Reason: Pain MILD(1-3)/Fever >100.5/TURK Last Admin: 07/23/18 18:14 Dose: 650 mg Documented by: Al Hydrox/Mg Hydrox/Simethicone (Alum-Mag Hydrox-Simeth [phone]/5ml) 30 ml PO Q6H PRN PRN Reason: Indigestion Betamethasone Acet/Betameth SodPhos (Celestone Soluspan) 12 mg IM Q24H SAMUEL Stop: 07/24/18 18:01 Last Admin: 07/23/18 18:00 Dose: 12 mg Documented by: Docusate Sodium (Colace) 100 mg PO Q12H PRN PRN Reason: Constipation Lactated Ringer's (Lactated Ringers) 1,000 mls @ 125 mls/hr IV DIRECT SAMUEL Last Admin: 07/23/18 18:04 Dose: 125 mls/hr Documented by: Lactated Ringer's (Lactated Ringers) 500 mls @ 999 mls/hr IV BOLUS ONE Stop: 07/23/18 18:30 Lactated Ringer's (Lactated Ringers) 1,000 mls @ 125 mls/hr IV DIRECT SAMUEL Magnesium Sulfate (Magnesium Sulfate 40gm/1000ml) 40 gm in 1,000 mls @ 50 mls/hr IV DIRECT SAMUEL Magnesium Sulfate (Magnesium Sulfate 4gm/100ml) 4 gm in 100 mls @ 300 mls/hr IV ONCE ONE Stop: 07/23/18 18:19 Last Admin: 07/23/18 18:01 Dose: 300 mls/hr Documented by: Multivitamins/Iron/Calcium ( Vitamin) 1 each PO QDAY SAMUEL Last Admin: 07/23/18 18:01 Dose: 1 each Documented by: Ondansetron HCl (Zofran) 4 mg IV Q6H PRN PRN Reason: Nausea And Vomiting Review of Systems All systems: negative - Vital Signs Vital signs: Vital Signs Pulse BP 82 104/57 07/23/18 15:35 07/23/18 15:35 Temp Pulse Resp BP Pulse Ox 98.0 F 69 18 103/52 07/23/18 17:10 07/23/18 18:06 07/23/18 15:46 07/23/18 18:06 - Physical Exam Breasts: Positive: normal Cardiovascular: Regular rate Lungs: Positive: Clear to auscultation, Normal air movement Abdomen: Positive: normal appearance, soft Genitourinary (Female): Positive: normal external genitalia, normal perenium Vulva: both: normal Vagina: Positive: normal moisture Uterus: Positive: normal size, normal contour Anus/Rectum: Positive: normal perianal skin Extremities: Positive: normal Deep Tendon Reflex Grade: Normal +2 - Obstetrical FHR: category 1 Uterine Contraction Monitor Mode: External Cervical Dilatation: 3 Cervical Effacement Percentage: 80 station: 0 Uterine Contraction Pattern: Irregular Uterine Tone Measurement Phase: Contraction Uterine Contraction Intensity: Mild Results Result Diagrams: 07/23/18 17:33 Abnormal lab results 07/23/18 Range/Units 17:33 MCHC 35 H (30-34) % RDW 13.1 L (13.2-15.2) % Seg Neutrophils % 70.4 H (40.0-70.0) % All other labs normal. Assessment and Plan 28y/o @ 33w6d by second trimester u/s here at [facility]. Pt has not had any care with this or the last. She had a 28wk delivery 04/2017. Pt now reports vision issues, dizziness and TURK has now resolved. Mag sulfate started for labor. u/s ordered for efw/presentation. labs drawn. steroids ordered. NICU consult ordered. - Patient Problems (1) 33 weeks gestation of Current Visit: Yes Status: Acute (2) No care in current in third trimester Current Visit: Yes Status: Acute (3) labor in third trimester Current Visit: Yes Status: Acute Qualifiers: Fetus number: single or unspecified fetus (4) Sickle cell trait Current Visit: Yes Status: Acute
[2018-07-23 18:33] LABS: Bilirubin,Urine NEG (Negative); Blood,Urine NEG (Negative); Color,Urine Yellow (Yellow); Protein,Urine <15 mg/dL mg/dL (Negative); Urobilinogen,Urine < 2.0 mg/dL (<2.0)
[2018-07-23 18:36] LABS: Amphetamine Screen,Urine PRESUMPTIVE NEGATIVE; Benzodiazepines Screen,Urine PRESUMPTIVE NEGATIVE; Cocaine Screen,Urine PRESUMPTIVE NEGATIVE; Methadone Screen,Urine PRESUMPTIVE NEGATIVE; Opiate Screen,Urine PRESUMPTIVE NEGATIVE
[2018-07-23 19:08] LABS: Cannabinoid Screen,Urine PRESUMPTIVE POSITIVE
[2018-07-23 19:38] LABS: Hepatitis C Virus Antibody Non-Reactive (NonReactive)
--- NOTE | 2018-07-23 19:48 | Progress Note ---
Assessment and Plan ctx present on toco, patient reports feeling irregular ctx and rectal pressure with ctx. SVE 3.5/80/-1 posterior. no bloody show or fluid noted. Continue with current plan of care. encouraged patient to notify RN of any new signs of labor. - Patient Problems (1) 33 weeks gestation of Current Visit: Yes Status: Acute (2) No care in current in third trimester Current Visit: Yes Status: Acute (3) labor in third trimester Current Visit: Yes Status: Acute Qualifiers: Fetus number: single or unspecified fetus (4) Sickle cell trait Current Visit: Yes Status: Acute Subjective - Subjective Date of service: 07/23/18 Principal diagnosis: IUP @ 33+6 weeks, no care, labor Interval history: EDC 09/04/18 established by 21wk [facility] u/s on 04/30/18 pt does not know LMP OB hx Term delivery 2015 28 weeks vaginal del 04/2017 - no care, chorio Edgardo hx - + SCT, patient states FOC is negative Surgical hx - lip ring removed Abscess drained on thigh in ED 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 Normal pap Patient reports: movement normal, contractions, no loss of fluid, no vaginal bleeding Objective - Vital Signs Vital Signs: Vital Signs - 12hr 07/23/18 07/23/18 07/23/18 15:35 15:46 17:10 Temperature 99.1 F 98.0 F Pulse Rate 82 Respiratory 18 Rate Blood Pressure 104/57 Blood Pressure [Right] 07/23/18 07/23/18 18:06 19:30 Temperature 95.3 F L Pulse Rate 69 71 Respiratory 18 Rate Blood Pressure 103/52 99/54 Blood Pressure 99/54 [Right] - Exam Breasts: normal Cardiovascular: Regular rate Lungs: Clear to auscultation, Normal air movement Abdomen: Present: normal appearance, soft Vulva: both: normal Uterus: Present: normal FHR: auscultation normal, category 1 Uterine Contraction Monitor Mode: External Cervical Dilatation: 3.5 (posterior) Cervical Effacement Percentage: 80 station: -1 Uterine Contraction Frequency (min): 2-6 Uterine Contraction Duration: 60 Uterine Contraction Pattern: Regular Uterine Tone Measurement Phase: Contraction Uterine Contraction Intensity: Mild Extremities: normal Deep Tendon Reflex Grade: Normal +2 - Labs Labs: Abnormal Labs 07/23/18 17:33 MCHC 35 H RDW 13.1 L Seg Neutrophils % 70.4 H Laboratory Results - last 24 hr 07/23/18 07/23/18 07/23/18 16:30 16:30 17:33 WBC 10.2 RBC 4.02 Hgb 12.1 Hct 35.1 MCV 87 MCH 30 MCHC 35 H RDW 13.1 L Plt Count 193 Lymph % (Auto) 23.1 [place] % (Auto) 5.5 Eos % (Auto) 0.8 Baso % (Auto) 0.2 Lymph # 2.4 [place] # 0.6 Eos # 0.1 Baso # 0.0 Seg Neutrophils % 70.4 H Seg Neutrophils # 7.2 Sickle Cell Screen Positive Urine Color Yellow Urine Turbidity Clear Urine pH 6.0 Ur Specific [place] 1.009 Urine Protein <15 mg/dl Urine Glucose (UA) Neg Urine Ketones Neg Urine Blood Neg Urine Nitrite Neg Urine Bilirubin Neg Urine Urobilinogen < 2.0 Ur Leukocyte Esterase Lg Urine WBC (Auto) 6.0 Urine RBC (Auto) 6.0 U Epithel Cells (Auto) 4.0 Urine Opiates Screen Presumptive negative Urine Methadone Screen Presumptive negative Ur Barbiturates Screen Presumptive negative Ur Phencyclidine Scrn Presumptive negative Ur Amphetamines Screen Presumptive negative U Benzodiazepines Scrn Presumptive negative Urine Cocaine Screen Presumptive negative U Marijuana (THC) Screen Presumptive positive Drugs of Abuse Note Disclamer Hep Bs Antigen Hepatitis C Antibody HIV 1&2 Antibody Rapid HIV P24 Antigen Rubella IgG Antibody Blood Type 07/23/18 07/23/18 07/23/18 17:33 17:33 17:33 WBC RBC Hgb Hct MCV MCH MCHC RDW Plt Count Lymph % (Auto) [place] % (Auto) Eos % (Auto) Baso % (Auto) Lymph # [place] # Eos # Baso # Seg Neutrophils % Seg Neutrophils # Sickle Cell Screen Urine Color Urine Turbidity Urine pH Ur Specific [place] Urine Protein Urine Glucose (UA) Urine Ketones Urine Blood Urine Nitrite Urine Bilirubin Urine Urobilinogen Ur Leukocyte Esterase Urine WBC (Auto) Urine RBC (Auto) U Epithel Cells (Auto) Urine Opiates Screen Urine Methadone Screen Ur Barbiturates Screen Ur Phencyclidine Scrn Ur Amphetamines Screen U Benzodiazepines Scrn Urine Cocaine Screen U Marijuana (THC) Screen Drugs of Abuse Note Hep Bs Antigen Non-reactive Hepatitis C Antibody HIV 1&2 Antibody Rapid Non react HIV P24 Antigen Non react Rubella IgG Antibody Blood Type O POSITIVE 07/23/18 17:41 WBC RBC Hgb Hct MCV MCH MCHC RDW Plt Count Lymph % (Auto) [place] % (Auto) Eos % (Auto) Baso % (Auto) Lymph # [place] # Eos # Baso # Seg Neutrophils % Seg Neutrophils # Sickle Cell Screen Urine Color Urine Turbidity Urine pH Ur Specific [place] Urine Protein Urine Glucose (UA) Urine Ketones Urine Blood Urine Nitrite Urine Bilirubin Urine Urobilinogen Ur Leukocyte Esterase Urine WBC (Auto) Urine RBC (Auto) U Epithel Cells (Auto) Urine Opiates Screen Urine Methadone Screen Ur Barbiturates Screen Ur Phencyclidine Scrn Ur Amphetamines Screen U Benzodiazepines Scrn Urine Cocaine Screen U Marijuana (THC) Screen Drugs of Abuse Note Hep Bs Antigen Hepatitis C Antibody Non-reactive HIV 1&2 Antibody Rapid HIV P24 Antigen Rubella IgG Antibody Immune Blood Type
[2018-07-23] MEDS ORDERED: AMBIEN PO PRN (20:36)
--- NOTE | 2018-07-23 21:16 | Ultrasound Report ---
US OB FOLLOW UP CLINICAL INDICATION: Female, 28 years of age. efw/presentation COMPARISON: April 2018. TECHNIQUE: Several real-time grayscale and color Doppler images were obtained. Permanent images were secured for documentation. FINDINGS: Single live IUP. Estimated gestational age 33 weeks 0 days. Estimated delivery date September 10, 2018. BPD 8.4 cm 33 weeks 4 days. Head circumference 30.1 cm 33 weeks 3 days. Abdominal circumference 28.9 cm 32 weeks 6 days. Femoral length 6.2 cm 32 weeks 2 days. Estimated weight 2062 g. heart rate 141 bpm. presentation cephalic. Normal JASON 9.5 cm. Placenta location anterior. No placenta previa. Cervix is not visualized. anatomic survey not performed. Limited exam performed for evaluation of age, weight, and positi on. IMPRESSION: 1. Single live IUP. Estimated gestational age 33 weeks 0 days. Estimated delivery date September 10, 2018. 2. Estimated weight 2062 g. 3. position cephalic. This document is electronically signed by Ellen Saenz DO., July 23 2018 09:14:47 PM ET
[2018-07-23] MEDS: AMPICILLIN/NS 2 GM/100 ML 2 GM/100 ML BAG IV SCH (23:51)
[2018-07-23] MEDS ORDERED: SUBLIMAZE IV ONE (23:59)
[2018-07-24] MEDS ORDERED: SUBLIMAZE IV PRN (00:09)
--- NOTE | 2018-07-24 04:35 | Event Note ---
Date: 07/24/18 patient had 2 episodes of LOF - one assessed by myself and one later assessed by RN. Both times, nitrazine test was negative. no fluid visualized coming from vagina. I performed sterile spec exam - no pooling or fluid noted, only white normal vaginal discharge. Dai in place and secured appropriately. Ampicillin started for latency ROM on the chance that membranes were ruptured. Pad is currently dry, pt is resting w/o complaints. ctx have decreased in frequency.
[2018-07-24] MEDS ORDERED: PEPCID IV ONE (05:38)
[2018-07-24] MEDS: AMPICILLIN/NS 2 GM/100 ML 2 GM/100 ML BAG IV SCH (05:56)
[2018-07-24] MEDS: LACTATED RINGERS 1,000 ML IV SCH ×2 (05:58→08:16)
[2018-07-24] MEDS ORDERED: PEPCID IV SCH ×2 (06:00→10:00)
--- NOTE | 2018-07-24 06:15 | Progress Note ---
Assessment and Plan pt calling out requesting epidural SVE 6-7,70,-2 Bolus infusing made aware of changes. Pt's only c/o is the hamm catheter Will re-eval after epidural. NICU made aware. Subjective - Subjective Date of service: 07/24/18 (one dose BMZ given) Principal diagnosis: IUP @ 34w0d weeks, no care, labor Patient reports: movement normal, contractions, no loss of fluid, no vaginal bleeding Objective - Vital Signs Vital Signs: Vital Signs - 12hr 07/23/18 07/23/18 07/23/18 19:30 19:47 19:49 Temperature 95.3 F L Pulse Rate 71 69 71 Respiratory 18 Rate Blood Pressure 99/54 116/59 Blood Pressure 99/54 [Right] O2 Sat by Pulse 99 Oximetry 07/23/18 07/23/18 07/23/18 19:54 19:59 20:01 Temperature Pulse Rate 85 72 77 Respiratory Rate Blood Pressure Blood Pressure [Right] O2 Sat by Pulse 98 99 85 Oximetry 07/23/18 07/23/18 07/23/18 20:04 20:09 20:14 Temperature Pulse Rate 75 72 78 Respiratory Rate Blood Pressure Blood Pressure [Right] O2 Sat by Pulse 100 100 99 Oximetry 07/23/18 07/23/18 07/23/18 20:17 20:19 20:24 Temperature Pulse Rate 72 75 81 Respiratory Rate Blood Pressure 111/61 Blood Pressure [Right] O2 Sat by Pulse 100 99 Oximetry 07/23/18 07/23/18 07/23/18 20:35 20:40 20:45 Temperature Pulse Rate 84 80 81 Respiratory Rate Blood Pressure Blood Pressure [Right] O2 Sat by Pulse 99 100 98 Oximetry 07/23/18 07/23/18 07/23/18 20:50 20:55 21:00 Temperature Pulse Rate 81 79 74 Respiratory Rate Blood Pressure Blood Pressure [Right] O2 Sat by Pulse 97 97 98 Oximetry 07/23/18 07/23/18 07/23/18 21:05 21:10 21:15 Temperature Pulse Rate 81 81 78 Respiratory Rate Blood Pressure Blood Pressure [Right] O2 Sat by Pulse 97 98 98 Oximetry 07/23/18 07/23/18 07/23/18 21:20 21:55 23:02 Temperature Pulse Rate 79 77 82 Respiratory Rate Blood Pressure 104/65 105/63 Blood Pressure [Right] O2 Sat by Pulse 98 Oximetry 07/23/18 07/24/18 07/24/18 23:55 00:56 01:55 Temperature Pulse Rate 86 63 74 Respiratory Rate Blood Pressure 135/58 107/75 92/53 Blood Pressure [Right] O2 Sat by Pulse Oximetry 07/24/18 07/24/18 07/24/18 02:55 03:35 03:37 Temperature Pulse Rate 76 78 82 Respiratory Rate Blood Pressure 84/48 Blood Pressure [Right] O2 Sat by Pulse 97 94 Oximetry 07/24/18 07/24/18 07/24/18 03:40 03:44 03:45 Temperature Pulse Rate 74 73 68 Respiratory Rate Blood Pressure Blood Pressure [Right] O2 Sat by Pulse 100 90 87 Oximetry 07/24/18 07/24/18 07/24/18 03:50 03:55 04:00 Temperature Pulse Rate 64 76 72 Respiratory Rate Blood Pressure 99/59 Blood Pressure [Right] O2 Sat by Pulse 97 99 100 Oximetry 07/24/18 07/24/18 07/24/18 04:05 04:10 04:14 Temperature Pulse Rate 72 75 71 Respiratory Rate Blood Pressure Blood Pressure [Right] O2 Sat by Pulse 100 95 90 Oximetry 07/24/18 07/24/18 07/24/18 04:15 04:20 04:25 Temperature Pulse Rate 75 77 80 Respiratory Rate Blood Pressure Blood Pressure [Right] O2 Sat by Pulse 100 100 99 Oximetry 07/24/18 07/24/18 07/24/18 04:30 04:35 04:40 Temperature Pulse Rate 68 71 74 Respiratory Rate Blood Pressure Blood Pressure [Right] O2 Sat by Pulse 100 100 99 Oximetry 07/24/18 07/24/18 07/24/18 04:45 04:50 04:55 Temperature Pulse Rate 72 73 76 Respiratory Rate Blood Pressure 117/70 Blood Pressure [Right] O2 Sat by Pulse 99 100 100 Oximetry 07/24/18 07/24/18 07/24/18 05:00 05:05 05:10 Temperature Pulse Rate 84 73 86 Respiratory Rate Blood Pressure Blood Pressure [Right] O2 Sat by Pulse 99 99 94 Oximetry 07/24/18 07/24/18 07/24/18 05:15 05:20 05:25 Temperature Pulse Rate 80 82 73 Respiratory Rate Blood Pressure Blood Pressure [Right] O2 Sat by Pulse 97 96 97 Oximetry 07/24/18 07/24/18 05:26 05:55 Temperature Pulse Rate 78 77 Respiratory Rate Blood Pressure 100/57 Blood Pressure [Right] O2 Sat by Pulse 94 Oximetry - Exam Breasts: deferred Cardiovascular: Regular rate Lungs: Clear to auscultation Abdomen: Present: normal appearance, soft. Absent: distention, tenderness Uterus: Present: normal FHR: auscultation normal, category 1 Uterine Contraction Monitor Mode: External Cervical Dilatation: 6.5 (BBOW) Cervical Effacement Percentage: 70 station: -2 Uterine Contraction Pattern: Irregular Uterine Tone Measurement Phase: Resting Uterine Contraction Intensity: Moderate Extremities: normal Deep Tendon Reflex Grade: Normal +2 - Labs Labs: Abnormal Labs 07/23/18 07/24/18 17:33 00:08 MCHC 35 H RDW 13.1 L Seg Neutrophils % 70.4 H Magnesium 5.90 H Laboratory Results - last 24 hr 07/23/18 07/23/18 07/23/18 16:30 16:30 17:33 WBC 10.2 RBC 4.02 Hgb 12.1 Hct 35.1 MCV 87 MCH 30 MCHC 35 H RDW 13.1 L Plt Count 193 Lymph % (Auto) 23.1 [place] % (Auto) 5.5 Eos % (Auto) 0.8 Baso % (Auto) 0.2 Lymph # 2.4 [place] # 0.6 Eos # 0.1 Baso # 0.0 Seg Neutrophils % 70.4 H Seg Neutrophils # 7.2 Sickle Cell Screen Positive Magnesium Urine Color Yellow Urine Turbidity Clear Urine pH 6.0 Ur Specific [place] 1.009 Urine Protein <15 mg/dl Urine Glucose (UA) Neg Urine Ketones Neg Urine Blood Neg Urine Nitrite Neg Urine Bilirubin Neg Urine Urobilinogen < 2.0 Ur Leukocyte Esterase Lg Urine WBC (Auto) 6.0 Urine RBC (Auto) 6.0 U Epithel Cells (Auto) 4.0 Urine Opiates Screen Presumptive negative Urine Methadone Screen Presumptive negative Ur Barbiturates Screen Presumptive negative Ur Phencyclidine Scrn Presumptive negative Ur Amphetamines Screen Presumptive negative U Benzodiazepines Scrn Presumptive negative Urine Cocaine Screen Presumptive negative U Marijuana (THC) Screen Presumptive positive Drugs of Abuse Note Disclamer Hep Bs Antigen Hepatitis C Antibody HIV 1&2 Antibody Rapid HIV P24 Antigen Rubella IgG Antibody Blood Type Antibody Screen 07/23/18 07/23/18 07/23/18 17:33 17:33 17:33 WBC RBC Hgb Hct MCV MCH MCHC RDW Plt Count Lymph % (Auto) [place] % (Auto) Eos % (Auto) Baso % (Auto) Lymph # [place] # Eos # Baso # Seg Neutrophils % Seg Neutrophils # Sickle Cell Screen Magnesium Urine Color Urine Turbidity Urine pH Ur Specific [place] Urine Protein Urine Glucose (UA) Urine Ketones Urine Blood Urine Nitrite Urine Bilirubin Urine Urobilinogen Ur Leukocyte Esterase Urine WBC (Auto) Urine RBC (Auto) U Epithel Cells (Auto) Urine Opiates Screen Urine Methadone Screen Ur Barbiturates Screen Ur Phencyclidine Scrn Ur Amphetamines Screen U Benzodiazepines Scrn Urine Cocaine Screen U Marijuana (THC) Screen Drugs of Abuse Note Hep Bs Antigen Non-reactive Hepatitis C Antibody HIV 1&2 Antibody Rapid Non react HIV P24 Antigen Non react Rubella IgG Antibody Blood Type O POSITIVE Antibody Screen Negative 07/23/18 07/24/18 17:41 00:08 WBC RBC Hgb Hct MCV MCH MCHC RDW Plt Count Lymph % (Auto) [place] % (Auto) Eos % (Auto) Baso % (Auto) Lymph # [place] # Eos # Baso # Seg Neutrophils % Seg Neutrophils # Sickle Cell Screen Magnesium 5.90 H Urine Color Urine Turbidity Urine pH Ur Specific [place] Urine Protein Urine Glucose (UA) Urine Ketones Urine Blood Urine Nitrite Urine Bilirubin Urine Urobilinogen Ur Leukocyte Esterase Urine WBC (Auto) Urine RBC (Auto) U Epithel Cells (Auto) Urine Opiates Screen Urine Methadone Screen Ur Barbiturates Screen Ur Phencyclidine Scrn Ur Amphetamines Screen U Benzodiazepines Scrn Urine Cocaine Screen U Marijuana (THC) Screen Drugs of Abuse Note Hep Bs Antigen Hepatitis C Antibody Non-reactive HIV 1&2 Antibody Rapid HIV P24 Antigen Rubella IgG Antibody Immune Blood Type Antibody Screen
--- NOTE | 2018-07-24 07:51 | Anesthesia Consultation ---
Anesthesia Consult and Med Hx - Airway Anesthetic Teeth Evaluation: Good ROM Head & Neck: Adequate Mental/Hyoid Distance: Adequate Mallampati Class: Class I Intubation Access Assessment: Good - Pulmonary Exam CTA: Yes - Cardiac Exam Cardiac Exam: RRR - Pre-Operative Health Status ASA Pre-Surgery Classification: ASA2 Proposed Anesthetic Plan: Epidural - Pulmonary Hx Asthma: No COPD: No Hx Pneumonia: No - Cardiovascular System Hx Hypertension: No - Central Nervous System Hx Seizures: No Hx Psychiatric Problems: Yes (post- depression) - Endocrine Hx Renal Disease: No Hx End Stage Renal Disease: No Hx Hypothyroidism: No Hx Hyperthyroidism: No - Hematic Hx Anemia: Yes Hx Sickle Cell Disease: Yes (Sickle cell trait) - Other Systems Hx Alcohol Use: No
--- NOTE | 2018-07-24 07:52 | Anesthesia Day of Surgery ---
Anesthesia Day of Surgery - Day of Surgery Patient Examined: Yes Patient H&P Reviewed: Yes Patient is NPO: Yes Beta Blockers: No Cardiac Clearance: No Pulmonary Clearance: No Win's Test: N/A
[2018-07-24] MEDS ORDERED: MARCAINE 0.25% INFILTRATI ONE (08:17)
[2018-07-24] MEDS ORDERED: fentaNYL-BUPIV 2 MCG/ML-0.125% 200 MCG/100 ML BAG EPIDURAL SCH (09:00)
[2018-07-24] MEDS ORDERED: NARCAN 2 MG/2 ML IV PRN (09:00)
--- NOTE | 2018-07-24 10:28 | Progress Note ---
Assessment and Plan pt comfortable after epidural Leaking fluid Completed rupture Clear fluid noted SVE 8,100,-1 Anticipate delivery Subjective - Subjective Date of service: 07/24/18 (Fluid leaking after Epidural placement) Principal diagnosis: IUP @ 34w0d weeks, no care, labor Patient reports: movement normal, contractions, no loss of fluid, no vaginal bleeding Objective - Vital Signs Vital Signs: Vital Signs - 12hr 07/23/18 07/23/18 07/24/18 23:02 23:55 00:56 Temperature Pulse Rate 82 86 63 Respiratory Rate Blood Pressure 105/63 135/58 107/75 O2 Sat by Pulse Oximetry 07/24/18 07/24/18 07/24/18 01:55 02:55 03:35 Temperature Pulse Rate 74 76 78 Respiratory Rate Blood Pressure 92/53 84/48 O2 Sat by Pulse 97 Oximetry 07/24/18 07/24/18 07/24/18 03:37 03:40 03:44 Temperature Pulse Rate 82 74 73 Respiratory Rate Blood Pressure O2 Sat by Pulse 94 100 90 Oximetry 07/24/18 07/24/18 07/24/18 03:45 03:50 03:55 Temperature Pulse Rate 68 64 76 Respiratory Rate Blood Pressure 99/59 O2 Sat by Pulse 87 97 99 Oximetry 07/24/18 07/24/18 07/24/18 04:00 04:05 04:10 Temperature Pulse Rate 72 72 75 Respiratory Rate Blood Pressure O2 Sat by Pulse 100 100 95 Oximetry 07/24/18 07/24/18 07/24/18 04:14 04:15 04:20 Temperature Pulse Rate 71 75 77 Respiratory Rate Blood Pressure O2 Sat by Pulse 90 100 100 Oximetry 07/24/18 07/24/18 07/24/18 04:25 04:30 04:35 Temperature Pulse Rate 80 68 71 Respiratory Rate Blood Pressure O2 Sat by Pulse 99 100 100 Oximetry 07/24/18 07/24/18 07/24/18 04:40 04:45 04:50 Temperature Pulse Rate 74 72 73 Respiratory Rate Blood Pressure O2 Sat by Pulse 99 99 100 Oximetry 07/24/18 07/24/18 07/24/18 04:55 05:00 05:05 Temperature Pulse Rate 76 84 73 Respiratory Rate Blood Pressure 117/70 O2 Sat by Pulse 100 99 99 Oximetry 07/24/18 07/24/18 07/24/18 05:10 05:15 05:20 Temperature Pulse Rate 86 80 82 Respiratory Rate Blood Pressure O2 Sat by Pulse 94 97 96 Oximetry 07/24/18 07/24/18 07/24/18 05:25 05:26 05:55 Temperature Pulse Rate 73 78 77 Respiratory Rate Blood Pressure 100/57 O2 Sat by Pulse 97 94 Oximetry 07/24/18 07/24/18 07/24/18 06:55 07:52 07:55 Temperature Pulse Rate 68 76 71 Respiratory Rate Blood Pressure 83/47 100/65 O2 Sat by Pulse 99 Oximetry 07/24/18 07/24/18 07/24/18 07:57 08:02 08:07 Temperature 97.7 F Pulse Rate 81 73 75 Respiratory 18 Rate Blood Pressure O2 Sat by Pulse 100 98 82 L Oximetry 07/24/18 07/24/18 07/24/18 08:14 08:19 08:21 Temperature Pulse Rate 83 71 77 Respiratory Rate Blood Pressure O2 Sat by Pulse 99 99 92 Oximetry 07/24/18 07/24/18 07/24/18 08:24 08:26 08:28 Temperature Pulse Rate 74 75 81 Respiratory Rate Blood Pressure 101/58 98/54 99/58 O2 Sat by Pulse 98 Oximetry 07/24/18 07/24/18 07/24/18 08:29 08:30 08:31 Temperature Pulse Rate 85 86 80 Respiratory Rate Blood Pressure 100/59 104/55 103/57 O2 Sat by Pulse 96 Oximetry 07/24/18 07/24/18 07/24/18 08:32 08:34 08:35 Temperature Pulse Rate 78 84 91 H Respiratory Rate Blood Pressure 117/59 108/58 106/57 O2 Sat by Pulse 99 Oximetry 07/24/18 07/24/18 07/24/18 08:36 08:38 08:39 Temperature Pulse Rate 99 H 96 H 87 Respiratory Rate Blood Pressure 107/58 119/57 O2 Sat by Pulse 99 Oximetry 07/24/18 07/24/18 07/24/18 08:40 08:41 08:43 Temperature Pulse Rate 86 93 H 91 H Respiratory Rate Blood Pressure 111/53 115/57 108/55 O2 Sat by Pulse Oximetry 07/24/18 07/24/18 07/24/18 08:44 08:45 08:47 Temperature Pulse Rate 80 83 80 Respiratory Rate Blood Pressure 111/56 112/57 O2 Sat by Pulse 100 85 Oximetry 07/24/18 07/24/18 07/24/18 08:48 08:49 08:50 Temperature Pulse Rate 88 89 91 H Respiratory Rate Blood Pressure 113/56 111/60 116/56 O2 Sat by Pulse Oximetry 07/24/18 07/24/18 07/24/18 08:51 08:52 08:53 Temperature Pulse Rate 85 87 85 Respiratory Rate Blood Pressure 118/55 119/57 O2 Sat by Pulse 100 85 Oximetry 07/24/18 07/24/18 07/24/18 08:54 08:55 08:56 Temperature Pulse Rate 78 85 82 Respiratory Rate Blood Pressure 117/55 111/55 113/55 O2 Sat by Pulse 100 Oximetry 07/24/18 07/24/18 07/24/18 08:57 08:58 08:59 Temperature Pulse Rate 77 73 71 Respiratory Rate Blood Pressure 114/55 111/53 100/54 O2 Sat by Pulse Oximetry 07/24/18 07/24/18 07/24/18 09:00 09:01 09:02 Temperature Pulse Rate 81 84 78 Respiratory Rate Blood Pressure 111/56 108/57 104/55 O2 Sat by Pulse 100 Oximetry 07/24/18 07/24/18 07/24/18 09:03 09:04 09:05 Temperature Pulse Rate 81 85 86 Respiratory Rate Blood Pressure 109/55 112/54 109/55 O2 Sat by Pulse Oximetry 07/24/18 07/24/18 07/24/18 09:06 09:07 09:08 Temperature Pulse Rate 75 81 78 Respiratory Rate Blood Pressure 106/54 105/55 107/55 O2 Sat by Pulse 100 Oximetry 07/24/18 07/24/18 07/24/18 09:09 09:10 09:11 Temperature Pulse Rate 91 H 80 81 Respiratory Rate Blood Pressure 110/57 106/56 111/61 O2 Sat by Pulse 92 99 Oximetry 07/24/18 07/24/18 07/24/18 09:14 09:15 09:16 Temperature Pulse Rate 78 78 78 Respiratory Rate Blood Pressure 116/54 106/52 104/54 O2 Sat by Pulse 98 Oximetry 07/24/18 07/24/18 07/24/18 09:17 09:18 09:19 Temperature Pulse Rate 74 79 79 Respiratory Rate Blood Pressure 103/50 97/53 103/55 O2 Sat by Pulse Oximetry 07/24/18 07/24/18 07/24/18 09:20 09:21 09:22 Temperature Pulse Rate 75 79 80 Respiratory Rate Blood Pressure 102/55 105/56 103/55 O2 Sat by Pulse 99 Oximetry 07/24/18 07/24/18 07/24/18 09:23 09:24 09:25 Temperature Pulse Rate 79 75 75 Respiratory Rate Blood Pressure 101/55 104/58 101/58 O2 Sat by Pulse 88 Oximetry 07/24/18 07/24/18 07/24/18 09:26 09:27 09:28 Temperature Pulse Rate 79 79 77 Respiratory Rate Blood Pressure 103/58 104/59 105/59 O2 Sat by Pulse 100 Oximetry 07/24/18 07/24/18 07/24/18 09:29 09:30 09:31 Temperature Pulse Rate 69 67 77 Respiratory Rate Blood Pressure 103/57 99/53 103/60 O2 Sat by Pulse 98 Oximetry 07/24/18 07/24/18 07/24/18 09:32 09:36 09:41 Temperature Pulse Rate 96 H 81 87 Respiratory Rate Blood Pressure 102/60 O2 Sat by Pulse 100 99 Oximetry 07/24/18 07/24/18 07/24/18 09:46 09:51 09:56 Temperature Pulse Rate 87 89 85 Respiratory Rate Blood Pressure O2 Sat by Pulse 99 98 100 Oximetry 07/24/18 07/24/18 07/24/18 10:01 10:03 10:06 Temperature Pulse Rate 95 H 87 91 H Respiratory Rate Blood Pressure 101/59 O2 Sat by Pulse 100 100 Oximetry 07/24/18 07/24/18 07/24/18 10:11 10:16 10:21 Temperature Pulse Rate 90 107 H 91 H Respiratory Rate Blood Pressure O2 Sat by Pulse 99 100 100 Oximetry - Exam Breasts: deferred Cardiovascular: Regular rate Lungs: Normal air movement Abdomen: Present: normal appearance, soft. Absent: distention, tenderness Uterus: Present: normal FHR: auscultation normal, category 1 Uterine Contraction Monitor Mode: External Cervical Dilatation: 8 (clear fluid noted during exam) Cervical Effacement Percentage: 100 station: -1 Uterine Contraction Pattern: Regular Uterine Tone Measurement Phase: Resting Uterine Contraction Intensity: Moderate Extremities: normal - Labs Labs: Abnormal Labs 07/23/18 07/24/18 07/24/18 17:33 00:08 05:25 MCHC 35 H RDW 13.1 L Seg Neutrophils % 70.4 H Magnesium 5.90 H 5.80 H Laboratory Results - last 24 hr 07/23/18 07/23/18 07/23/18 16:30 16:30 17:33 WBC 10.2 RBC 4.02 Hgb 12.1 Hct 35.1 MCV 87 MCH 30 MCHC 35 H RDW 13.1 L Plt Count 193 Lymph % (Auto) 23.1 [place] % (Auto) 5.5 Eos % (Auto) 0.8 Baso % (Auto) 0.2 Lymph # 2.4 [place] # 0.6 Eos # 0.1 Baso # 0.0 Seg Neutrophils % 70.4 H Seg Neutrophils # 7.2 Sickle Cell Screen Positive Magnesium Urine Color Yellow Urine Turbidity Clear Urine pH 6.0 Ur Specific [place] 1.009 Urine Protein <15 mg/dl Urine Glucose (UA) Neg Urine Ketones Neg Urine Blood Neg Urine Nitrite Neg Urine Bilirubin Neg Urine Urobilinogen < 2.0 Ur Leukocyte Esterase Lg Urine WBC (Auto) 6.0 Urine RBC (Auto) 6.0 U Epithel Cells (Auto) 4.0 Urine Opiates Screen Presumptive negative Urine Methadone Screen Presumptive negative Ur Barbiturates Screen Presumptive negative Ur Phencyclidine Scrn Presumptive negative Ur Amphetamines Screen Presumptive negative U Benzodiazepines Scrn Presumptive negative Urine Cocaine Screen Presumptive negative U Marijuana (THC) Screen Presumptive positive Drugs of Abuse Note Disclamer Hep Bs Antigen Hepatitis C Antibody HIV 1&2 Antibody Rapid HIV P24 Antigen Rubella IgG Antibody Blood Type Antibody Screen 07/23/18 07/23/18 07/23/18 17:33 17:33 17:33 WBC RBC Hgb Hct MCV MCH MCHC RDW Plt Count Lymph % (Auto) [place] % (Auto) Eos % (Auto) Baso % (Auto) Lymph # [place] # Eos # Baso # Seg Neutrophils % Seg Neutrophils # Sickle Cell Screen Magnesium Urine Color Urine Turbidity Urine pH Ur Specific [place] Urine Protein Urine Glucose (UA) Urine Ketones Urine Blood Urine Nitrite Urine Bilirubin Urine Urobilinogen Ur Leukocyte Esterase Urine WBC (Auto) Urine RBC (Auto) U Epithel Cells (Auto) Urine Opiates Screen Urine Methadone Screen Ur Barbiturates Screen Ur Phencyclidine Scrn Ur Amphetamines Screen U Benzodiazepines Scrn Urine Cocaine Screen U Marijuana (THC) Screen Drugs of Abuse Note Hep Bs Antigen Non-reactive Hepatitis C Antibody HIV 1&2 Antibody Rapid Non react HIV P24 Antigen Non react Rubella IgG Antibody Blood Type O POSITIVE Antibody Screen Negative 07/23/18 07/24/18 07/24/18 17:41 00:08 05:25 WBC RBC Hgb Hct MCV MCH MCHC RDW Plt Count Lymph % (Auto) [place] % (Auto) Eos % (Auto) Baso % (Auto) Lymph # [place] # Eos # Baso # Seg Neutrophils % Seg Neutrophils # Sickle Cell Screen Magnesium 5.90 H 5.80 H Urine Color Urine Turbidity Urine pH Ur Specific [place] Urine Protein Urine Glucose (UA) Urine Ketones Urine Blood Urine Nitrite Urine Bilirubin Urine Urobilinogen Ur Leukocyte Esterase Urine WBC (Auto) Urine RBC (Auto) U Epithel Cells (Auto) Urine Opiates Screen Urine Methadone Screen Ur Barbiturates Screen Ur Phencyclidine Scrn Ur Amphetamines Screen U Benzodiazepines Scrn Urine Cocaine Screen U Marijuana (THC) Screen Drugs of Abuse Note Hep Bs Antigen Hepatitis C Antibody Non-reactive HIV 1&2 Antibody Rapid HIV P24 Antigen Rubella IgG Antibody Immune Blood Type Antibody Screen
[2018-07-24] MEDS ORDERED: AMPICILLIN/NS 1 GM/50 ML 1 GM/50 ML BAG IV SCH (11:00)
[2018-07-24] MEDS ORDERED: PITOCin/NS 30 UNIT/500ML 30 UNITS/500 ML BAG IV SCH (11:00)
[2018-07-24] MEDS ORDERED: PITOCin/NS 20 UNIT/1000ML DRIP 20,000 MILLIUNITS/1,000 ML BAG IV ONE (12:03)
[2018-07-24] MEDS ORDERED: TUCKS PAD TP PRN (12:33)
[2018-07-24] MEDS ORDERED: DULCOLAX PR PRN (12:33)
[2018-07-24] MEDS ORDERED: BENADRYL PO PRN (12:33)
[2018-07-24] MEDS ORDERED: MILK OF MAGNESIA PO PRN (12:33)
[2018-07-24] MEDS ORDERED: PHENERGAN PR PRN (12:33)
[2018-07-24] MEDS ORDERED: TYLENOL PO PRN (12:33)
[2018-07-24] MEDS ORDERED: LANSINOH TP PRN (12:33)
[2018-07-24] MEDS ORDERED: ZOFRAN IV PRN (12:33)
[2018-07-24] MEDS ORDERED: PHENERGAN PO PRN (12:33)
--- NOTE | 2018-07-24 12:42 | Procedure Note ---
OB Delivery Note - Delivery Date of Delivery: 07/24/18 Clinical Associate: AIDA OWEN Estimated blood loss: 300cc - Vaginal Delivery presentation: vertex Delivery position: OA Intrapartum events: no care, labor-<37 weeks, PROM->1hr before delivery Delivery induction: none Delivery augmentation: rupture of membranes Delivery monitor: external FHT, external uterine Route of delivery: Delivery placenta: spontaneous Delivery cord: 3 umbilical vessels Episiotomy: none Delivery laceration: none Anesthesia: epidural Delivery comments: NICU team called to room for delivery live born male over intact perineum Baby crying Cord clamped and cut Handed off to waiting NICU team. Cord blood obtained Placenta and membrane delivered complete and intact, 3 vessel cord. Pit IVFs Placenta to pathology. 8/9, EBL 300, Wgt 4-3. Baby to NICU stable Mom remains LDR stable. aware of delivery. - A at 1 minute: 8 at 5 minutes: 9 Infant Gender: Male (wgt 4-3)
[2018-07-24] MEDS ORDERED: SODIUM CHLORIDE FLUSH SYRINGE 10 ML IV SCH (13:00)
[2018-07-24] MEDS: IBUPROFEN PO SCH ×2 (13:18→23:53)
--- NOTE | 2018-07-24 13:45 | Post Anesthesia Evaluation ---
- Post Anesthesia Evaluation Patient Participated: Yes Airway Patent: Yes Stable Respiratory Function: Yes Nausea/Vomiting: No Temp > 96.8F: Yes Pain Manageable: Yes Adequeate Hydration: No Anesthesia Complications: No Block Receding Appropriately: Yes Patient on Ventilator: No
[2018-07-25 00:31] LABS: Hematocrit 30.7 % (30.3-42.9); Hemoglobin 10.3 gm/dl (10.1-14.3)
[2018-07-25] MEDS: IBUPROFEN PO SCH ×2 (06:09→08:18)
--- NOTE | 2018-07-25 08:16 | Discharge Summary ---
Providers - Providers Date of Admission: 07/23/18 17:16 Date of discharge: 07/25/18 Attending physician: FANNY RODNEY 07/23/18 19:11 Consult to Physician [CONS] Routine Comment: 33w6d, no care, labor Consulting Provider: AJAY CALLES Physician Instructions: Reason For Exam: delivery Primary care physician: FANNY RODNEY Hospitalization Reason for admission: labor, no care Condition: Good Pertinent studies: post delivery H&H 10.3/30.7 Procedures: Hospital course: and delvivery complicated by prematurity. course uncomplicated Disposition: DC-01 TO HOME OR SELFCARE - Discharge Diagnoses (1) No care in current in third trimester Status: Acute (2) Sickle cell trait Status: Acute (3) delivery Status: Acute Core Measure Documentation - Palliative Care Palliative Care/ Comfort Measures: Not Applicable - Core Measures Any of the following diagnoses?: none Exam - Constitutional Vitals: Temp Pulse Resp BP Pulse Ox 97.5 F L 71 18 93/55 100 07/25/18 01:11 07/25/18 01:11 07/25/18 06:09 07/25/18 01:11 07/25/18 01:11 General appearance: Present: no acute distress, well-nourished - EENT Eyes: Present: PERRL ENT: hearing intact, clear oral mucosa - Neck Neck: Present: supple, normal ROM - Respiratory Respiratory effort: normal Respiratory: bilateral: CTA - Cardiovascular Heart Sounds: Present: S1 & S2. Absent: rub, click - Extremities Extremities: pulses symmetrical, No edema Peripheral Pulses: within normal limits - Abdominal General gastrointestinal: Present: soft, non-tender, non-distended, normal bowel sounds Female genitourinary: Present: normal - Integumentary Integumentary: Present: clear, warm, dry - Musculoskeletal Musculoskeletal: gait normal, strength equal bilaterally - Psychiatric Psychiatric: appropriate mood/affect, intact judgment & insight - Neurologic Neurologic: CNII-XII intact, moves all extremities - Additional findings Additional findings: Lochia scant, fundus firm, pumping breast milk Plan Activity: no restrictions Diet: regular Follow up with: FANNY RODNEY MD [Primary Care Provider] - 6 Weeks (Congratulations. Please call [phone] to schedule appointment in 6 weeks. call for any questions or concerns.) Prescriptions: Ibuprofen [Motrin 800 MG tab] 800 mg PO Q8HR PRN #30 tablet PRN Reason: Pain
[2018-07-25] MEDS ORDERED: DEPO-PROVERA (CONTRACEPTION) IM NR (09:00)
[2018-07-25 16:11] VITALS: BP 111/70
== END 2018-07-25 17:35 | disposition home or self-care (01) | DRG 805 ==
LOC: TRG 15:20 → LD 17:16 → TRG 17:34 → OB 07-24 14:00
PROVIDERS: ADMIT Obstetrics & Gynecology; ATTEND Obstetrics & Gynecology
PROC: 10E0XZZ Delivery of Products of Conception, External Approach (ICD-10-PCS; principal; 2018-07-24)
PROC: 00HU33Z Insertion of Infusion Device into Spinal Canal, Percutaneous Approach (ICD-10-PCS; 2018-07-24)
PROC: 3E0R3BZ Introduction of Anesthetic Agent into Spinal Canal, Percutaneous Approach (ICD-10-PCS; 2018-07-24)
DX: O42.913 Preterm premature rupture of membranes, unspecified as to length of time between rupture and onset of labor, third trimester (principal); O60.14X0 Preterm labor third trimester with preterm delivery third trimester, not applicable or unspecified; Z37.0 Single live birth; O99.02 Anemia complicating childbirth; D57.3 Sickle-cell trait; Z3A.33 33 weeks gestation of pregnancy
CPT/HCPCS: 36415; 76816; 80307; 81001; 83735; 85014; 85018; 85025; 85660; 86592; 86706; 86762; 86803; 86850; 86900; 86901; 87806; 88307; 96372; G0378; J0290; J0702; J1050; J2405; J2590; J3010; J3475; J7120

== ENCOUNTER 2019-04-28 14:08 | Emergency (ER) | payer MEDICAID ==
--- NOTE | 2019-04-28 16:00 | Event Note ---
ED Screening Note Date of service: 04/28/19 Time: 15:58 ED Screening Note: This is a 29 y.o. F. that presents to the ER with pelvic cramps and vaginal discharge for 3 days. LMP 04/16/2018 This initial assessment/diagnostic orders/clinical plan/treatment(s) is/are subject to change based on patients health status, clinical progression and re- assessment by fellow clinical providers in the ED. Further treatment and workup at subsequent clinical providers discretion. Patient/guardian urged not to elope from the ED as their condition may be serious if not clinically assessed and managed. Initial orders include: UA and urine hCG
[2019-04-28 17:02] LABS: Bilirubin,Urine NEG (Negative); Blood,Urine NEG (Negative); Color,Urine Yellow (Yellow); Mucus,Urine FEW /HPF; Protein,Urine <15 mg/dL mg/dL (Negative); Urobilinogen,Urine < 2.0 mg/dL (<2.0)
[2019-04-28 17:03] LABS: HCG Qualitative,Urine Negative (Negative)
[2019-04-28 20:28] VITALS: BP 112/71
--- NOTE | 2019-04-28 21:07 | Emergency Department Report ---
ED Female HPI - General Chief complaint: Abdominal Pain Stated complaint: ABD CRAMPING/VAG DISCHARGE Time Seen by Provider: 04/28/19 15:58 Source: patient Mode of arrival: Ambulatory Limitations: No Limitations - History of Present Illness MD Complaint: vaginal discharge -: Gradual Location: suprapubic Radiation: suprapubic Severity: mild, moderate Quality: dull Consistency: constant Improves with: none Worsens with: none Are you Now?: No Associated Symptoms: vaginal discharge. denies: vaginal bleeding, abdominal pain, fever/chills, headaches, loss of appetite, dysuria, hematuria, seizure, shortness of breath, syncope - Related Data Sexually active: No (reports having not had any sexual contact over the last 7 months) Previous Rx's Medication Instructions Recorded Last Taken Type Acetaminophen [Tylenol] 650 mg PO QID PRN #30 capsule 05/06/18 Unknown Rx cephALEXin [Keflex] 500 mg PO Q8HR 10 Days #30 cap 05/06/18 Unknown Rx Ibuprofen [Motrin 800 MG tab] 800 mg PO Q8HR PRN #30 tablet 07/25/18 Unknown Rx metroNIDAZOLE [Flagyl] 500 mg PO Q12HR #14 tab 04/28/19 Unknown Rx Allergies Allergy/AdvReac Type Severity Reaction Status Date / Time No Known Allergies Allergy Verified 01/03/16 12:48 ED Review of Systems ROS: Stated complaint: ABD CRAMPING/VAG DISCHARGE Other details as noted in HPI Comment: All other systems reviewed and negative ED Past Medical Hx - Past Medical History Previous Medical History?: No Hx Hypertension: No Hx Congestive Heart Failure: No Hx Diabetes: No Hx Deep Vein Thrombosis: No Hx Renal Disease: No Hx Sickle Cell Disease: Yes (Sickle cell trait) Hx Seizures: No Hx Asthma: No Hx COPD: No Hx HIV: No - Surgical History Past Surgical History?: No - Social History Smoking Status: Never Smoker Substance Use Type: None - Medications Home Medications: Home Medications Medication Instructions Recorded Confirmed Last Taken Type Acetaminophen [Tylenol] 650 mg PO QID PRN #30 capsule 05/06/18 07/24/18 Unknown Rx cephALEXin [Keflex] 500 mg PO Q8HR 10 Days #30 cap 05/06/18 07/24/18 Unknown Rx Ibuprofen [Motrin 800 MG tab] 800 mg PO Q8HR PRN #30 tablet 04/23/19 Unknown Rx metroNIDAZOLE [Flagyl] 500 mg PO Q12HR #14 tab 04/28/19 Unknown Rx ED Physical Exam - General Limitations: No Limitations General appearance: alert, in no apparent distress - Head Head exam: Present: atraumatic, normocephalic - Eye Eye exam: Present: normal appearance - ENT ENT exam: Present: mucous membranes moist - Neck Neck exam: Present: normal inspection - Respiratory Respiratory exam: Present: normal lung sounds bilaterally. Absent: respiratory distress - Cardiovascular Cardiovascular Exam: Present: regular rate, normal rhythm. Absent: systolic murmur, diastolic murmur, rubs, gallop - GI/Abdominal GI/Abdominal exam: Present: soft, normal bowel sounds - External exam: Present: normal external exam, other (nurse policy advisor present during the examination) Speculum exam: Present: vaginal discharge Bi-manual exam: Present: uterine tenderness (with deep palpation). Absent: cervical motion tendernes, adnexal tenderness - Extremities Exam Extremities exam: Present: normal inspection, normal capillary refill - Back Exam Back exam: Present: normal inspection - Neurological Exam Neurological exam: Present: alert, oriented X3 - Psychiatric Psychiatric exam: Present: normal affect, normal mood - Skin Skin exam: Present: warm, dry, intact, normal color. Absent: rash ED Course Vital Signs 04/28/19 04/28/19 04/28/19 14:24 18:59 20:27 Temperature 98.1 F 98.1 F Pulse Rate 94 H 86 74 Respiratory 14 18 18 Rate Blood Pressure 122/70 108/69 112/71 [Left] O2 Sat by Pulse 98 99 99 Oximetry Critical care attestation.: If time is entered above; I have spent that time in minutes in the direct care of this critically ill patient, excluding procedure time. ED Disposition Clinical Impression: Bacterial vaginosis Disposition: DC-01 TO HOME OR SELFCARE Is pt being admited?: No Does the pt Need Aspirin: No Condition: Stable Instructions: Abdominal Pain (ED), Bacterial Vaginosis (ED) Prescriptions: metroNIDAZOLE [Flagyl] 500 mg PO Q12HR #14 tab Referrals: PRIMARY CARE, [Primary Care Provider] - 3-5 Days [facility] [Provider Group] - 3-5 Days Forms: STI Treatment and Prevention
== END 2019-04-28 21:16 | disposition home or self-care (01) ==
LOC: ED 14:08
DX: N76.0 Acute vaginitis (principal); B96.89 Other specified bacterial agents as the cause of diseases classified elsewhere; Z79.899 Other long term (current) drug therapy
CPT/HCPCS: 81001; 81025; 87086; 87210; 87591; 99283; 99284

== ENCOUNTER 2021-07-07 19:58 | Outpatient (CLI) | payer MEDICAID ==
[2021-07-07] MEDS ORDERED: LACTATED RINGERS 1,000 ML ONE (20:27)
--- NOTE | 2021-07-07 22:00 | Ultrasound Report ---
ULTRASOUND OBSTETRIC INDICATION / CLINICAL INFORMATION: NO PNC, EGA, EDC. TECHNIQUE: Transabdominal. COMPARISON: None available. FINDINGS: Single intrauterine . Biparietal Diameter = 7.2 cm = 28, 5 weeks, days Head Circumference = 24.5 cm = 26, 4 weeks, days Abdominal Circumference = 21.6 cm = 26, 1 weeks, days Femur Length = 4.6 cm = 25, 2 weeks, days Average Ultrasound Age (AUA) = 26, 5 weeks, days Heart Rate: 152 beats per minute. Estimated Weight in grams (if calculated): 877 Position: cephalic. Cervix: closed. Length in cm (if measured): 4.2 Placenta: anterior and free of the os. Amniotic Fluid Volume: normal Amniotic Fluid Index (JASON) in cm (if calculated): 12.8. Maternal Adnexa: No significant abnormality. IMPRESSION: 1. Single, living intrauterine with estimated sonographic age of 26, 5 weeks, days. 2. No significant sonographic abnormality. Signer Name: Bobby Barragan MD Signed: 07/07/2021 9:56 PM Workstation Name: [id number]
[2021-07-08 04:23] LABS: Amphetamine Screen,Urine PRESUMPTIVE NEGATIVE; Benzodiazepines Screen,Urine PRESUMPTIVE NEGATIVE; Cannabinoid Screen,Urine PRESUMPTIVE POSITIVE; Cocaine Screen,Urine PRESUMPTIVE NEGATIVE; Methadone Screen,Urine PRESUMPTIVE NEGATIVE; Opiate Screen,Urine PRESUMPTIVE NEGATIVE
[2021-07-08 08:30] VITALS: BP 98/53
[2021-07-08] MEDS ORDERED: LACTATED RINGERS 500 ML IV ONE (08:44)
--- NOTE | 2021-07-09 10:22 | Electrocardiograph Report ---
[facility] Test Date: 2021-07-07 Test Time: 20:40:37 Pat Name: AUGUSTA YING Department: Room: 2016 04 Gender: F Court Recording Monitor: WLILIAMS : 1990 Requested By: JENNIFER RECINOS Order Number: [id number] Reading MD: Juan Fuentes Measurements Intervals Advance Rate: 71 P: 67 OK: 150 QRS: 42 QRSD: 85 T: 33 QT: 386 QTc: 420 Interpretive Statements Sinus rhythm No previous ECG available for comparison Electronically Signed On 07-09-2021 10:22:08 EDT by Juan Fuentes
== END 2021-07-08 08:59 | disposition home or self-care (01) ==
LOC: TRG 19:58 → APU 20:01 → TRG 07-08 08:59
PROVIDERS: ATTEND Obstetrics & Gynecology Gynecology
DX: O99.512 Diseases of the respiratory system complicating pregnancy, second trimester (principal); R06.02 Shortness of breath; O26.892 Other specified pregnancy related conditions, second trimester; R10.9 Unspecified abdominal pain; R10.2 Pelvic and perineal pain; Z3A.26 26 weeks gestation of pregnancy; Z87.891 Personal history of nicotine dependence
CPT/HCPCS: 36600; 59025; 76816; 80307; 82805; 93005; 96360

== ENCOUNTER 2021-09-06 23:12 | Inpatient (IN) | payer MEDICAID ==
[2021-09-07] MEDS ORDERED: PENICILLIN G POTASSIUM 5 MIL.UNITS in SODIUM CHLORIDE 0.9% 50 ML IV ONE (00:21)
[2021-09-07] MEDS ORDERED: fentaNYL 100 MCG/2 ML INJ IV ONE (00:26)
[2021-09-07] MEDS ORDERED: LACTATED RINGERS 1,000 ML IV SCH ×2 (00:30→01:15)
[2021-09-07] MEDS ORDERED: OXYTOCIN DRIP 30,000 MILLIUNITS/500 ML BAG IV ONE (01:01)
[2021-09-07] MEDS ORDERED: LIDOCAINE (2%) 20 MG/1 ML VIAL 20 ML MDV INFILTRATI ONE (01:03)
[2021-09-07] MEDS ORDERED: METHYLERGONOVINE MALEATE 0.2 MG/ML VIAL IM PRN ×2 (01:03→02:27)
[2021-09-07] MEDS ORDERED: ONDANSETRON 4 MG/2 ML INJ IV PRN ×2 (01:03→02:21)
[2021-09-07] MEDS ORDERED: miSOPROStol 200 MCG TAB PR PRN (01:03)
[2021-09-07] MEDS ORDERED: NALOXONE 0.4 MG/1 ML INJ IV PRN (01:03)
[2021-09-07] MEDS ORDERED: BUTORPHANOL 2 MG/1 ML INJ IV PRN ×2 (01:03)
[2021-09-07] MEDS ORDERED: OXYTOCIN 10 UNIT/1 ML INJ IM PRN (01:03)
[2021-09-07] MEDS ORDERED: PROMETHAZINE 25 MG TAB PO PRN ×2 (01:03→02:21)
[2021-09-07] MEDS ORDERED: ePHEDrine SULFATE 50 MG/1 ML INJ IV PRN (01:03)
[2021-09-07] MEDS ORDERED: CARBOPROST TROMETHAMINE 250 MCG/1 ML INJ IM PRN ×2 (01:03→02:27)
[2021-09-07] MEDS ORDERED: fentaNYL 100 MCG/2 ML INJ IV PRN (01:03)
[2021-09-07] MEDS ORDERED: ACETAMINOPHEN 325 MG TAB PO PRN ×2 (01:03→02:27)
[2021-09-07] MEDS ORDERED: TERBUTALINE 1 MG/1 ML INJ SUB-Q PRN (01:03)
[2021-09-07] MEDS ORDERED: LOPERAMIDE 2 MG CAP PO PRN ×2 (01:03→02:27)
[2021-09-07] MEDS ORDERED: MINERAL OIL 30 ML ORAL LIQD PO PRN (01:03)
--- NOTE | 2021-09-07 01:03 | History and Physical Report ---
History of Present Illness Date of examination: 09/07/21 Date of admission: 09/07/21 00:09 09/07/21 Chief complaint: water broke, and contractions Past History Past Medical History: no pertinent history Past Surgical History: no surgical history Family/Genetic History: none - Obstetrical History Expected Date of Delivery: 10/08/21 Actual Gestation: 35 Week(s) 4 Day(s) : 4 Para: 3 Hx # Term Pregnancies: 3 Spontaneous Abortions: 0 Induced : 0 Number of Living Children: 3 #1 Gender: Male Method of Delivery: Vaginal () #2 Infant Gender: Male Method of Delivery: Vaginal () #3 Infant Gender: Female Method of Delivery: Vaginal () Medications and Allergies Allergies Allergy/AdvReac Type Severity Reaction Status Date / Time No Known Allergies Allergy Verified 09/07/21 00:26 Home Medications Medication Instructions Recorded Confirmed Last Taken Type Vit-Fe Fumar-FA [ 1 tab PO DAILY 09/07/21 09/07/21 09/06/21 History Vitamin] Active Meds: Active Medications Penicillin G Potassium 2.5 mil (.units/ Sodium Chloride) 50 mls @ 100 mls/hr IV Q4H SAMUEL; Protocol Lactated Ringer's (Lactated Ringers) 1,000 mls @ 125 mls/hr IV DIRECT SAMUEL - Vital Signs Vital signs: Vital Signs Pulse BP 73 103/59 09/06/21 23:36 09/06/21 23:36 Temp Pulse Resp BP Pulse Ox 97.7 F 70 16 109/54 100 09/07/21 00:27 09/07/21 00:55 09/07/21 00:27 09/07/21 00:27 09/07/21 00:55 - Physical Exam Breasts: Positive: deferred Cardiovascular: Regular rate Lungs: Positive: Clear to auscultation Abdomen: Positive: normal appearance Genitourinary (Female): Positive: normal external genitalia Vulva: both: normal Vagina: Positive: normal moisture Anus/Rectum: Positive: hemorrhoids (small external no erythema noted) Extremities: Positive: normal - Obstetrical FHR: category 1 Uterine Contraction Monitor Mode: External Cervical Dilatation: 8 Cervical Effacement Percentage: 90 station: -1 Uterine Contraction Pattern: Regular Results Result Diagrams: 09/07/21 00:40 All other labs normal. Assessment and Plan A: IUP at 35.4wks PROM clear active labor unknown GBS P: Admit NICU evaluation Start antibiotics for unknown GBS Anticipate delivery pain management
[2021-09-07 01:27] LABS: Hematocrit 32.7 % (30.3-42.9); Mean Corpuscular HGB Conc 34 % (30-34); Mean Corpuscular Volume 89 fl (79-97); Platelet Count 210 K/mm3 (140-440); Red Blood Count 3.69 M/mm3 (3.65-5.03); Red Cell Distribution Width 14.1 % (13.2-15.2)
[2021-09-07] MEDS ORDERED: OXYTOCIN DRIP 30 UNITS/500 ML BAG IV SCH ×3 (02:00→03:00)
--- NOTE | 2021-09-07 02:20 | Procedure Note ---
OB Delivery Note - Delivery Date of Delivery: 09/07/21 (0119) Surgeon: MESFIN PEREZ (CN) Estimated blood loss: 100cc - Vaginal Delivery position: OA Intrapartum events: labor-<37 weeks, PROM->1hr before delivery Delivery induction: none Delivery monitor: external FHT, external uterine Route of delivery: Delivery placenta: spontaneous Delivery cord: 3 umbilical vessels Episiotomy: none Delivery laceration: other (left periurethral no repair needed) Anesthesia: none Delivery comments: Patient presented to labor and delivery complaining of rupture of membrane. IUP @35.4wks PROM clear at 2030 while at home. Forebag ruptured while laboring. She progressed to complete with urge to push. She spontaneously delivered a viable baby boy over an intact perineum. 5#3oz, 8/9 , no nuchal cord, delayed cord clamping, EBL 100ml, Left periurethral lac ( no repair needed). spontaneous delivery of placenta ( intact) which was sent to pathology. both mother and infant are well. - Infant A at 1 minute: 8 at 5 minutes: 9 Gender: Male (5# 3oz)
[2021-09-07] MEDS ORDERED: LANOLIN/ZINC/DIMETHICONE (LANSINOH) 7 GM TP PRN (02:21)
[2021-09-07] MEDS ORDERED: diphenhydrAMINE 25 MG CAP PO PRN (02:21)
[2021-09-07] MEDS ORDERED: PROMETHAZINE 25 MG RECT SUPP PR PRN (02:21)
[2021-09-07] MEDS ORDERED: MAGNESIUM HYDROXIDE (MOM) ORAL LIQD UDC PO PRN (02:21)
[2021-09-07] MEDS ORDERED: WITCH HAZEL/ GLYCERIN PAD TP PRN (02:21)
[2021-09-07] MEDS ORDERED: oxyCODONE /ACETAMINOPHEN 5-325MG TAB PO PRN (02:27)
[2021-09-07] MEDS ORDERED: HYDROCORTISONE 25 MG RECTAL SUPP PR PRN (02:27)
[2021-09-07] MEDS ORDERED: miSOPROStol 100 MCG TAB PR PRN (02:27)
[2021-09-07] MEDS: IBUPROFEN 600 MG TAB PO SCH ×4 (03:02→23:06)
[2021-09-07] MEDS ORDERED: PENICILLIN G POTASSIUM 2.5 MIL.UNITS in SODIUM CHLORIDE 0.9% 50 ML IV SCH (05:00)
--- NOTE | 2021-09-07 09:59 | Event Note ---
Date: 09/07/21 pt doing well. pt ambulant to NICU to see baby. Fundus firm 3cm below umbilicus and pt doing well. Vitals wnl. Routine care. All qu estions encouraged and answered.
[2021-09-07] MEDS: DOCUSATE SODIUM 100 MG CAP PO SCH ×2 (10:20→23:06)
[2021-09-07 14:41] LABS: Hematocrit 33.9 % (30.3-42.9); Hemoglobin 11.3 gm/dl (10.1-14.3)
[2021-09-08] MEDS: IBUPROFEN 600 MG TAB PO SCH ×2 (05:35→23:01)
[2021-09-08] MEDS: DOCUSATE SODIUM 100 MG CAP PO SCH ×2 (12:53→23:01)
--- NOTE | 2021-09-08 17:03 | Progress Note ---
Assessment and Plan PPD#1 doing well 1. Routine care and discharge home in the pm tomorrow 2. All questions encouraged and answered Subjective Date of service: 09/08/21 Principal diagnosis: PPD#1 doing well Interval history: pt has no complaints and has been visiting baby and breast pumping for baby in the NICU. Objective - Constitutional Vitals: Vital Signs - 12hr 09/08/21 09/08/21 09/08/21 05:33 08:00 08:50 Temperature 98.1 F Pulse Rate 71 Respiratory 20 Rate Blood Pressure 104/68 [Left] O2 Sat by Pulse 91 Oximetry O2 Sat by Pulse 98 98 Oximetry [ Anterior Bilateral Throughout] 09/08/21 16:23 Temperature 98 F Pulse Rate 66 Respiratory 20 Rate Blood Pressure 100/62 [Left] O2 Sat by Pulse 100 Oximetry O2 Sat by Pulse Oximetry [ Anterior Bilateral Throughout] General appearance: Present: no acute distress - Neck Neck: normal ROM - Respiratory Respiratory effort: normal - Cardiovascular Rhythm: regular Extremities: No edema - Gastrointestinal General gastrointestinal: Present: soft, non-tender - Genitourinary Female genitourinary: other (Fundus firm, non-tender 3cm below the umbilicus) - Neurologic Neurologic: moves all extremities - Psychiatric Psychiatric: cooperative - Labs CBC & Chem 7: 09/07/21 13:52 Medications & Allergies - Medications Allergies/Adverse Reactions: Allergies No Known Allergies Allergy (Verified 09/07/21 00:26) Home Medications: Home Medications Medication Instructions Recorded Confirmed Last Taken Type Vit-Fe Fumar-FA [ 1 tab PO DAILY 09/07/21 09/07/21 09/06/21 History Vitamin] Active Medications: Generic Name Dose Route Start Last Admin Trade Name Freq PRN Reason Stop Dose Admin Acetaminophen 650 mg 09/07/21 02:27 Acetaminophen 325 Mg Tab PO Q4H PRN Pain MILD(1-3)/Fever >100.5/TURK Bisacodyl 10 mg 09/07/21 02:21 Bisacodyl 10 Mg Rect Supp AK BID PRN Constipation Carboprost Tromethamine 250 mcg 09/07/21 02:27 Carboprost Tromethamine 250 Mcg/1 Ml Inj IM ONCE PRN Uterine Bleeding Diphenhydramine HCl 25 mg 09/07/21 02:21 Diphenhydramine 25 Mg Cap PO Q6H PRN Itching Docusate Sodium 100 mg 09/07/21 10:00 09/08/21 12:53 Docusate Sodium 100 Mg Cap PO 100 mg BID SAMUEL Administration Ephedrine Sulfate 10 mg 09/07/21 01:03 Ephedrine Sulfate 50 Mg/1 Ml Inj IV Q2M PRN Hypotension Hydrocortisone Acetate 25 mg 09/07/21 02:27 Hydrocortisone 25 Mg Rectal Supp AK BID PRN Hemorrhoids Lactated Ringer's 1,000 mls @ 125 mls/hr 09/07/21 01:15 Lactated Ringers IV DIRECT SAMUEL Oxytocin/Sodium Chloride 30 units in 500 mls @ 40 mls/hr 09/07/21 03:00 Pitocin/Ns 30 Unit/500ml IV TITR SAMUEL Protocol Ibuprofen 600 mg 09/07/21 03:00 09/08/21 05:35 Ibuprofen 600 Mg Tab PO 600 mg Q6H SAMUEL Administration Loperamide HCl 2 mg 09/07/21 02:27 Loperamide 2 Mg Cap PO ONCE PRN give with Hemabate Magnesium Hydroxide 30 ml 09/07/21 02:21 Magnesium Hydroxide (Mom) Oral Liqd Udc PO HS PRN Constipation Methylergonovine Maleate 0.2 mg 09/07/21 02:27 Methylergonovine Maleate 0.2 Mg/Ml Vial IM Q4H PRN Uterine Bleeding Mineral Oil 30 ml 09/07/21 01:03 Mineral Oil 30 Ml Oral Liqd PO QHS PRN Constipation Misoprostol 800 mcg 09/07/21 02:27 Misoprostol 100 Mcg Tab AK ONCE PRN Uterine Bleeding Multi-Ingredient Ointment 1 applic 09/07/21 02:21 Lanolin/Zinc/Dimethicone (Lansinoh) 7 Gm TP PRN PRN Sore Nipples Naloxone HCl 0.1 mg 09/07/21 01:03 Naloxone 0.4 Mg/1 Ml Inj IV Q2MIN PRN Res Rate </= 8 or 02 SAT < 92% Ondansetron HCl 4 mg 09/07/21 02:21 Ondansetron 4 Mg/2 Ml Inj IV Q8H PRN Nausea And Vomiting Oxycodone/Acetaminophen 1 tab 09/07/21 02:27 09/07/21 03:01 Oxycodone /Acetaminophen 5-325mg Tab PO 1 tab Q4H PRN Administration Pain, Moderate (4-6) Oxytocin 10 unit 09/07/21 01:03 Oxytocin 10 Unit/1 Ml Inj IM ONCE PRN Uterine Bleeding Promethazine HCl 25 mg 09/07/21 02:21 Promethazine 25 Mg Rect Supp AK Q6H PRN Nausea And Vomiting Promethazine HCl 25 mg 09/07/21 02:21 Promethazine 25 Mg Tab PO Q6H PRN Nausea And Vomiting Sodium Chloride 10 ml 09/07/21 03:00 Sodium Chloride 0.9% 10 Ml Flush Syringe IV PRN PRN LINE FLUSH Terbutaline Sulfate 0.25 mg 09/07/21 01:03 Terbutaline 1 Mg/1 Ml Inj SUB-Q ONCE PRN Hyperstimulation/Hypertonicity Witch Preeti/Glycerin 1 each 09/07/21 02:21 09/07/21 04:40 Witch Preeti/ Glycerin Pad TP 1 each PRN PRN Administration Hemorrhoid/cleansing/soothing
[2021-09-09] MEDS: IBUPROFEN 600 MG TAB PO SCH (04:09)
--- NOTE | 2021-09-09 16:32 | Progress Note ---
Assessment and Plan PPD#2 doing well 1. Discharge pt home Subjective Date of service: 09/09/21 Principal diagnosis: PPD#2 doing well Interval history: pt has no complaints and has been visiting baby in the NICU. Objective - Constitutional Vitals: Vital Signs - 12hr 09/09/21 09/09/21 08:20 08:55 Temperature 97.9 F Pulse Rate 60 Respiratory 20 Rate Blood Pressure 92/48 [Left] O2 Sat by Pulse 100 Oximetry O2 Sat by Pulse 98 Oximetry [ Anterior Bilateral Throughout] General appearance: Present: no acute distress - Neck Neck: normal ROM - Respiratory Respiratory effort: normal - Breasts Breasts: deferred - Cardiovascular Rhythm: regular Extremities: No edema - Gastrointestinal General gastrointestinal: Present: soft, non-tender - Genitourinary Female genitourinary: other (Fundus firm, 3cm below umbilicus and non-tender ) - Integumentary Integumentary: warm, dry - Labs CBC & Chem 7: 09/07/21 13:52 Medications & Allergies - Medications Allergies/Adverse Reactions: Allergies No Known Allergies Allergy (Verified 09/07/21 00:26) Home Medications: Home Medications Medication Instructions Recorded Confirmed Last Taken Type Vit-Fe Fumar-FA [ 1 tab PO DAILY 09/07/21 09/07/21 09/06/21 History Vitamin] Active Medications: Generic Name Dose Route Start Last Admin Trade Name Freq PRN Reason Stop Dose Admin Acetaminophen 650 mg 09/07/21 02:27 Acetaminophen 325 Mg Tab PO Q4H PRN Pain MILD(1-3)/Fever >100.5/TURK Bisacodyl 10 mg 09/07/21 02:21 Bisacodyl 10 Mg Rect Supp ID BID PRN Constipation Carboprost Tromethamine 250 mcg 09/07/21 02:27 Carboprost Tromethamine 250 Mcg/1 Ml Inj IM ONCE PRN Uterine Bleeding Diphenhydramine HCl 25 mg 09/07/21 02:21 Diphenhydramine 25 Mg Cap PO Q6H PRN Itching Docusate Sodium 100 mg 09/07/21 10:00 09/08/21 23:01 Docusate Sodium 100 Mg Cap PO 100 mg BID SAMUEL Administration Ephedrine Sulfate 10 mg 09/07/21 01:03 Ephedrine Sulfate 50 Mg/1 Ml Inj IV Q2M PRN Hypotension Hydrocortisone Acetate 25 mg 09/07/21 02:27 Hydrocortisone 25 Mg Rectal Supp ID BID PRN Hemorrhoids Lactated Ringer's 1,000 mls @ 125 mls/hr 09/07/21 01:15 Lactated Ringers IV DIRECT SAMUEL Oxytocin/Sodium Chloride 30 units in 500 mls @ 40 mls/hr 09/07/21 03:00 Pitocin/Ns 30 Unit/500ml IV TITR [facility] Protocol Ibuprofen 600 mg 09/07/21 03:00 09/09/21 04:09 Ibuprofen 600 Mg Tab PO 600 mg Q6H SAMUEL Administration Loperamide HCl 2 mg 09/07/21 02:27 Loperamide 2 Mg Cap PO ONCE PRN give with Hemabate Magnesium Hydroxide 30 ml 09/07/21 02:21 Magnesium Hydroxide (Mom) Oral Liqd Udc PO HS PRN Constipation Methylergonovine Maleate 0.2 mg 09/07/21 02:27 Methylergonovine Maleate 0.2 Mg/Ml Vial IM Q4H PRN Uterine Bleeding Mineral Oil 30 ml 09/07/21 01:03 Mineral Oil 30 Ml Oral Liqd PO QHS PRN Constipation Misoprostol 800 mcg 09/07/21 02:27 Misoprostol 100 Mcg Tab ID ONCE PRN Uterine Bleeding Multi-Ingredient Ointment 1 applic 09/07/21 02:21 Lanolin/Zinc/Dimethicone (Lansinoh) 7 Gm TP PRN PRN Sore Nipples Naloxone HCl 0.1 mg 09/07/21 01:03 Naloxone 0.4 Mg/1 Ml Inj IV Q2MIN PRN Res Rate </= 8 or 02 SAT < 92% Ondansetron HCl 4 mg 09/07/21 02:21 Ondansetron 4 Mg/2 Ml Inj IV Q8H PRN Nausea And Vomiting Oxycodone/Acetaminophen 1 tab 09/07/21 02:27 09/07/21 03:01 Oxycodone /Acetaminophen 5-325mg Tab PO 1 tab Q4H PRN Administration Pain, Moderate (4-6) Oxytocin 10 unit 09/07/21 01:03 Oxytocin 10 Unit/1 Ml Inj IM ONCE PRN Uterine Bleeding Promethazine HCl 25 mg 09/07/21 02:21 Promethazine 25 Mg Rect Supp ID Q6H PRN Nausea And Vomiting Promethazine HCl 25 mg 09/07/21 02:21 Promethazine 25 Mg Tab PO Q6H PRN Nausea And Vomiting Sodium Chloride 10 ml 09/07/21 03:00 Sodium Chloride 0.9% 10 Ml Flush Syringe IV PRN PRN LINE FLUSH Terbutaline Sulfate 0.25 mg 09/07/21 01:03 Terbutaline 1 Mg/1 Ml Inj SUB-Q ONCE PRN Hyperstimulation/Hypertonicity Witch Pretei/Glycerin 1 each 09/07/21 02:21 09/07/21 04:40 Witch Preeti/ Glycerin Pad TP 1 each PRN PRN Administration Hemorrhoid/cleansing/soothing
--- NOTE | 2021-09-09 16:40 | Discharge Summary ---
Providers - Providers Date of Admission: 09/07/21 00:09 Date of discharge: 09/09/21 Attending physician: ORIANA BLACKWOOD 09/07/21 18:49 Consult to Case Management [CONS] Routine Services Needed at Discharge: Other Traffic Administrator Notified:: [phone] Phone number called:: number busy Additional Physician Instructions: Baby positive for THC/mom + THC Primary care physician: ORIANA BLACKWOOD Hospitalization Reason for admission: IUP - Delivery: Episiotomy: none Laceration: 1st degree (and no repair needed per CNMW who delivered this baby) Discharge diagnosis: delivery [place] baby: male Hospital course: delivery uncomplicated with baby in NICU and course uneventful Condition at discharge: Good Disposition: 01 HOME / SELF CARE / HOMELESS Plan - Provider Discharge Summary Additional instructions: [] Smoking cessation referral if applicable(refer to patient education folder for contact #) [] Refer to [facility] Booklet Call your doctor immediately for: * Fever > 100.5 * Heavy vaginal bleeding ( >1 pad per hour) * Severe persistent headache * Shortness of breath * Reddened, hot, painful area to leg or breast * Drainage or odor from incision. * Keep incision clean and dry at all times and follow doctor's instructions regarding bathing/showering - Follow up plan Follow up: ORIANA BLACKWOOD MD [Primary Care Provider] - 7 Days
[2021-09-09 16:47] VITALS: BP 111/57
== END 2021-09-09 21:34 | disposition home or self-care (01) | DRG 775 ==
LOC: TRG 23:12 → LD 23:13 → TRG 09-07 00:08 → LD 09-07 00:09 → OB 09-07 04:30
PROVIDERS: ADMIT Obstetrics & Gynecology; ATTEND Obstetrics & Gynecology
PROC: 10E0XZZ Delivery of Products of Conception, External Approach (ICD-10-PCS; principal; 2021-09-07)
DX: O42.013 Preterm premature rupture of membranes, onset of labor within 24 hours of rupture, third trimester (principal); Z3A.35 35 weeks gestation of pregnancy; Z37.0 Single live birth; Z20.822 Contact with and (suspected) exposure to COVID-19; O71.82 Other specified trauma to perineum and vulva; O60.14X0 Preterm labor third trimester with preterm delivery third trimester, not applicable or unspecified
CPT/HCPCS: 36415; 85014; 85018; 85027; 86592; 86706; 86762; 86850; 86900; 86901; 87806; 88307; G0378; J2590; J3010; U0003